=== PATIENT | male | born 1945 | race Caucasian/White ===

== ENCOUNTER → 2018-01-29 07:29 | Outpatient (CLI) | payer MEDICARE, OTHER, SELFPAY ==
[2018-01-29 09:39] LABS: Hemoglobin A1C% w Est Avg Glu 6.3 % (4.0-6.0)
[2018-01-29 09:51] LABS: Alanine Aminotransferase 34 IU/L (21-72); Albumin 4.3 g/dL (3.5-5.0); Albumin Globulin Ratio 1.4 (1.0-2.8); Alkaline Phosphatase 44 U/L (38-126); Aspartate Aminotransferase 23 IU/L (17-59); BUN Creatinine Ratio 26.7 (6-22); Bilirubin Total 0.9 mg/dL (0.2-1.3); Blood Urea Nitrogen 16 mg/dL (9-20); Calcium 9.2 mg/dL (8.4-10.2); Carbon Dioxide 28 mmol/L (22-32); Chloride 100 mmol/L (98-107); Cholesterol 146 mg/dL (140-199); Estimated Glomerular Filt Rate > 60.0 mL/min (>60); Glucose 112 mg/dL (80-110); HDL Cholesterol 41 mg/dL (40-60); HEMOLYSIS < 15 (0-50); LDL Cholesterol Calculated 83 mg/dL (<100); Potassium 4.1 mmol/L (3.4-5.1); Sodium 141 mmol/L (137-145); Total Protein 7.3 g/dL (6.3-8.2); Triglycerides 112 mg/dL (35-150)
[2018-01-29 10:03] LABS: Creatinine Urine Random 55.8 mg/dL
[2018-01-29 10:22] LABS: Microalbumi Creatinin Ratio Ur 10.7 ug/mg CR (<30); Microalbumin Urine Random < 0.6 mg/dL (0-1.6)
== END ==
PROVIDERS: Family Provider Physician Assistant; PCP Physician Assistant; Visit Provider Physician Assistant
DX: E78.5 Hyperlipidemia, unspecified (principal); I10 Essential (primary) hypertension; E11.9 Type 2 diabetes mellitus without complications
CPT/HCPCS: 36415; 80053; 80061; 82043; 82570; 83036

== ENCOUNTER → 2018-03-01 10:30 | Outpatient (CLI) | payer MEDICARE, OTHER, SELFPAY ==
[2018-03-01 11:47] LABS: Prostate Specific Antigen Scrn 0.905 ng/mL (0.1-4.0)
== END ==
PROVIDERS: Family Provider Physician Assistant; PCP Physician Assistant; Visit Provider Physician Assistant
DX: Z12.5 Encounter for screening for malignant neoplasm of prostate (principal)
CPT/HCPCS: 36415; G0103

== ENCOUNTER → 2018-09-22 07:26 | Outpatient (CLI) | payer MEDICARE, OTHER, SELFPAY ==
[2018-09-22 08:52] LABS: BUN Creatinine Ratio 21.4 (6-22); Blood Urea Nitrogen 15 mg/dL (9-20); Calcium 9.3 mg/dL (8.4-10.2); Carbon Dioxide 30 mmol/L (22-32); Chloride 101 mmol/L (98-107); Estimated Glomerular Filt Rate > 60.0 mL/min (>60); Glucose 114 mg/dL (80-110); HEMOLYSIS < 15 (0-50); Potassium 4.4 mmol/L (3.4-5.1); Sodium 140 mmol/L (137-145)
== END ==
PROVIDERS: PCP Physician Assistant; Visit Provider Physician Assistant
DX: E11.9 Type 2 diabetes mellitus without complications (principal); E78.5 Hyperlipidemia, unspecified; I10 Essential (primary) hypertension
CPT/HCPCS: 36415; 80048

== ENCOUNTER → 2019-02-24 07:17 | Outpatient (CLI) | payer MEDICARE, OTHER, SELFPAY ==
[2019-02-24 08:37] LABS: Creatinine Urine Random 41.4 mg/dL
[2019-02-24 08:43] LABS: Microalbumi Creatinin Ratio Ur 14.4 ug/mg CR (<30); Microalbumin Urine Random < 0.6 mg/dL (0-1.6)
[2019-02-24 08:46] LABS: Hemoglobin A1C% w Est Avg Glu 5.8 % (4.0-6.0)
[2019-02-24 09:04] LABS: Alanine Aminotransferase 19 IU/L (21-72); Albumin 4.3 g/dL (3.5-5.0); Albumin Globulin Ratio 1.5 (1.0-2.8); Alkaline Phosphatase 52 U/L (38-126); Aspartate Aminotransferase 21 IU/L (17-59); Bilirubin Total 1.1 mg/dL (0.2-1.3); Blood Urea Nitrogen 15 mg/dL (9-20); Calcium 9.5 mg/dL (8.4-10.2); Carbon Dioxide 30 mmol/L (22-32); Chloride 102 mmol/L (98-107); Cholesterol 145 mg/dL (140-199); Estimated Glomerular Filt Rate > 60.0 mL/min (>60); Globulin 2.8 g/dL (1.7-4.1); Glucose 100 mg/dL (80-110); HDL Cholesterol 42 mg/dL (40-60); HEMOLYSIS < 15 (0-50); LDL Cholesterol Calculated 85 mg/dL (<100); Potassium 4.4 mmol/L (3.4-5.1); Sodium 141 mmol/L (137-145); Total Protein 7.1 g/dL (6.3-8.2); Triglycerides 91 mg/dL (35-150)
[2019-02-24 09:34] LABS: Carcinoembryonic Antigen 0.4 ng/mL (0.1-3.0)
== END ==
PROVIDERS: PCP Physician Assistant; Visit Provider Physician Assistant
DX: E11.9 Type 2 diabetes mellitus without complications (principal); E78.5 Hyperlipidemia, unspecified; I10 Essential (primary) hypertension; Z85.048 Personal history of other malignant neoplasm of rectum, rectosigmoid junction, and anus
CPT/HCPCS: 36415; 80053; 80061; 82043; 82378; 82570; 83036

== ENCOUNTER → 2020-02-28 08:06 | Outpatient (CLI) | payer OTHER, SELFPAY ==
[2020-02-28 09:06] LABS: Add Manual Diff / Slide Review NO; Basophils Absolute Auto 0 /uL (0-100); Basophils Percent Auto 0.5 % (0-2); Eosinophils Absolute Auto 100 /uL (0-450); Eosinophils Percent Auto 1.3 % (2-4); Hematocrit 42.9 % (41-53); Hemoglobin 14.6 g/dL (13.5-17.5); Lymphocytes Absolute Auto 1100 /uL (1100-4500); Lymphocytes Percent Auto 23.3 % (25-40); Mean Corpuscular HGB Conc 34.1 % (30-36); Mean Corpuscular Hemoglobin 32.5 PG (26-34); Mean Corpuscular Volume 95.2 fL (80-100); Monocytes Absolute Auto 500 /uL (0-900); Monocytes Percent Auto 9.7 % (3-14); Neutrophils Absolute Auto 3200 /uL (1500-7000); Neutrophils Percent Auto 65.2 % (50-75); Platelet Count 247 X10^3/uL (150-400); Red Blood Cell Count 4.51 X10^6/uL (4.5-5.9); Red Cell Distribution Width 14.2 % (11.6-14.8); White Blood Cell Count 4.8 X10^3/uL (4.5-11.0)
[2020-02-28 09:12] LABS: Hemoglobin A1C% w Est Avg Glu 6.4 % (4.0-6.0)
[2020-02-28 09:27] LABS: Alanine Aminotransferase 17 IU/L (<50); Albumin 4.6 g/dL (3.5-5.0); Albumin Globulin Ratio 1.8 (1.0-2.8); Alkaline Phosphatase 50 U/L (38-126); Aspartate Aminotransferase 23 IU/L (17-59); BUN Creatinine Ratio 30.6 (6-22); Bilirubin Total 1.6 mg/dL (0.2-1.3); Blood Urea Nitrogen 19 mg/dL (9-20); Calcium 10.1 mg/dL (8.4-10.2); Carbon Dioxide 30 mmol/L (22-32); Chloride 99 mmol/L (98-107); Cholesterol 150 mg/dL (140-199); Estimated Glomerular Filt Rate > 60.0 mL/min (>60); Globulin 2.6 g/dL (1.7-4.1); Glucose 110 mg/dL (80-110); HDL Cholesterol 46 mg/dL (40-60); HEMOLYSIS < 15 (0-50); LDL Cholesterol Calculated 86 mg/dL (<100); Potassium 4.4 mmol/L (3.4-5.1); Sodium 137 mmol/L (137-145); Total Protein 7.2 g/dL (6.3-8.2); Triglycerides 91 mg/dL (35-150)
[2020-02-28 09:55] LABS: Thyroid Stimulating Hormone 2.89 uIU/mL (0.47-4.68)
[2020-02-28 09:59] LABS: Prostate Specific Antigen Scrn 0.699 ng/mL (0.1-4.0)
== END ==
PROVIDERS: PCP Family Medicine; Referring Provider Family Medicine; Visit Provider Family Medicine
DX: C20 Malignant neoplasm of rectum (principal); E11.9 Type 2 diabetes mellitus without complications; E78.5 Hyperlipidemia, unspecified; I10 Essential (primary) hypertension; Z13.29 Encounter for screening for other suspected endocrine disorder; C78.5 Secondary malignant neoplasm of large intestine and rectum; Z12.5 Encounter for screening for malignant neoplasm of prostate
CPT/HCPCS: 36415; 80053; 80061; 83036; 84443; 85025; G0103

== ENCOUNTER → 2020-07-05 07:45 | Outpatient (CLI) | payer OTHER, SELFPAY ==
[2020-07-05 08:42] LABS: Hemoglobin A1C% w Est Avg Glu 6.3 % (4.0-6.0)
[2020-07-05 08:49] LABS: Alanine Aminotransferase 16 IU/L (<50); Albumin 3.9 g/dL (3.5-5.0); Albumin Globulin Ratio 1.6 (1.0-2.8); Alkaline Phosphatase 46 U/L (38-126); Aspartate Aminotransferase 21 IU/L (17-59); BUN Creatinine Ratio 23.3 (6-22); Bilirubin Total 1.4 mg/dL (0.2-1.3); Blood Urea Nitrogen 17 mg/dL (9-20); Calcium 9.3 mg/dL (8.4-10.2); Carbon Dioxide 31 mmol/L (22-32); Chloride 101 mmol/L (98-107); Cholesterol 123 mg/dL (140-199); Estimated Glomerular Filt Rate > 60.0 mL/min (>60); Globulin 2.5 g/dL (1.7-4.1); Glucose 99 mg/dL (80-110); HDL Cholesterol 38 mg/dL (40-60); HEMOLYSIS < 15 (0-50); LDL Cholesterol Calculated 71 mg/dL (<100); Potassium 4.3 mmol/L (3.4-5.1); Sodium 137 mmol/L (137-145); Total Protein 6.4 g/dL (6.3-8.2); Triglycerides 72 mg/dL (35-150)
[2020-07-05 09:01] LABS: Creatinine Urine Random 60.6 mg/dL
[2020-07-05 09:11] LABS: Microalbumin Urine Random < 0.6 mg/dL (0-1.6)
== END ==
PROVIDERS: PCP Family Medicine; Referring Provider Family Medicine; Visit Provider Family Medicine
DX: E11.9 Type 2 diabetes mellitus without complications (principal); E78.5 Hyperlipidemia, unspecified; I10 Essential (primary) hypertension
CPT/HCPCS: 36415; 80053; 80061; 82043; 82570; 83036

== ENCOUNTER → 2020-09-07 | Outpatient (CLI) | payer OTHER, SELFPAY ==
--- NOTE | 2020-09-07 07:51 | DI.ECHO.S_ITS ---
[place]---------+ [facility] +---------+ : : [address] : : : : [id number] : : : : Phone: [phone]+ Echocardiogram Report + + :Name: TASHIA BUSH Study Date: 09/07/2020 Height: 67 in : :[facility] Weight: 132 lb : : Gender: Male BSA: 1.7 m2 : :: 1945 Age: 75 yrs BP: 142/60 mmHg: :Reason For Study: BRADYCARDIA, LOW BP : : Performed By: Kenan Velásquez : :Referring: Rylan ARANA : + + Interpretation Summary The ejection fraction is estimated to be 60-65%. The aortic valve is slightly calcified. There is mild aortic regurgitation. There is trace tricuspid regurgitation. The right ventricular systolic pressure is estimated to be at least 20 mmHg based on an estimated right atrial pressure of 3 mm Hg. The ascending aorta is mildly enlarged. Procedure: A two-dimensional transthoracic echocardiogram with color flow and Doppler was performed. The study quality was technically good. There is no prior echocardiogram noted for this patient. The patient was in normal sinus rhythm during the exam. Left Ventricle: The left ventricle is normal in size. There is normal left ventricular wall thickness. The ejection fraction is estimated to be 60-65%. There are no focal wall motion abnormalities. Right Ventricle: The right ventricle is normal in size and function. Atria: The left atrium is moderately dilated. Right atrial size is normal. There is no Doppler evidence for an atrial septal defect. Mitral Valve: The mitral valve is normal in structure and function. There is trace mitral regurgitation. Aortic Valve: The aortic valve is trileaflet. The aortic valve is slightly calcified. The aortic valve opens well. There is no hemodynamically significant valvular aortic stenosis. There is mild aortic regurgitation. Tricuspid Valve: The tricuspid valve is normal in structure and function. There is trace tricuspid regurgitation. The right ventricular systolic pressure is estimated to be at least 20 mmHg based on an estimated right atrial pressure of 3 mm Hg. Pulmonic Valve: The pulmonic valve is normal in structure and function. There is no pulmonic valvular regurgitation. Great Vessels: The aortic root is normal size. The ascending aorta is mildly enlarged. The pulmonary artery is normal size. The IVC is of normal diameter and collapses greater than 50% with a sniff. This suggests a low right atrial pressure of 3 mm Hg. Pericardium/ Pleura There is no pericardial effusion. There is no pleural effusion. MMode/2D Measurements & Calculations LVIDd: 5.0 cm LVOT diam: 2.2 cm LVIDs: 3.1 cm Ao root diam: 3.4 cm FS: 38.5 % asc Aorta Diam: 3.8 cm EPSS: 0.44 cm Ao Arch Diam (Prox Trans): 2.5 cm IVSd: 0.76 cm LVPWd: 0.88 cm LV glass. diameter/BSA (cm/m^2): 3.0 LV sys. diameter/BSA (cm/m^2): 1.8 LA dimension: 3.7 cm RA long axis: 4.9 cm LA A2 area: 21.6 cm2 RA area: 14.3 cm2 LA A4 area: 18.5 cm2 RA vol: 35.5 ml LA length (vol): 4.9 cm RA : 20.9 ml/m2 LA vol: 69.1 ml IVC diam: 1.6 cm LA vol index: 40.8 ml/m2 Doppler Measurements & Calculations Ao V2 max: 164.9 cm/sec LVOT Max Janes: 113.8 cm/sec Ao V2 mean: 116.9 cm/sec LV V1 max P.2 mmHg Ao max P.9 mmHg LV V1 VTI: 23.5 cm Ao mean P.9 mmHg RAMONA(I,D): 2.8 cm2 Ao V2 VTI: 32.9 cm RAMONA(V,D): 2.7 cm2 sev ratio: 0.71 RAMONA indexed to BSA (cm^2/m^2): 1.6 AI P1/2t: 576.9 msec AI dec slope: 206.5 cm/sec2 MV E max janes: 69.6 cm/sec TR max janes: 205.4 cm/sec MV A max janes: 82.1 cm/sec TR max P.9 mmHg MV E/A: 0.85 PA V2 max: 82.8 cm/sec Med Peak E' Janes: 6.9 cm/sec PA V2 mean: 63.4 cm/sec E/E' med: 10.0 PA mean P.7 mmHg Lat Peak E' Janes: 8.2 cm/sec PA pr(Accel): 20.8 mmHg E/E' lat: 8.5 E/e' average: 9.2 MV dec time: 0.20 sec SV(LVOT): 90.6 ml Reading Physician:01:43 PM
== END ==
PROVIDERS: PCP Family Medicine; Referring Provider Family Medicine; Visit Provider Family Medicine
DX: I35.1 Nonrheumatic aortic (valve) insufficiency (principal); I77.89 Other specified disorders of arteries and arterioles; R00.1 Bradycardia, unspecified; I10 Essential (primary) hypertension
CPT/HCPCS: 93306

== ENCOUNTER → 2020-09-28 07:26 | Outpatient (CLI) | payer OTHER, SELFPAY ==
[2020-09-28 09:36] LABS: Alanine Aminotransferase 17 IU/L (<50); Albumin 4.5 g/dL (3.5-5.0); Albumin Globulin Ratio 1.6 (1.0-2.8); Alkaline Phosphatase 45 U/L (38-126); Aspartate Aminotransferase 24 IU/L (17-59); BUN Creatinine Ratio 31.5 (6-22); Bilirubin Total 1.6 mg/dL (0.2-1.3); Blood Urea Nitrogen 23 mg/dL (9-20); Calcium 9.8 mg/dL (8.4-10.2); Carbon Dioxide 34 mmol/L (22-32); Chloride 98 mmol/L (98-107); Estimated Glomerular Filt Rate > 60.0 mL/min (>60); Globulin 2.8 g/dL (1.7-4.1); Glucose 118 mg/dL (80-110); HEMOLYSIS < 15 (0-50); Potassium 4.9 mmol/L (3.4-5.1); Sodium 136 mmol/L (137-145); Total Protein 7.3 g/dL (6.3-8.2)
[2020-09-28 09:41] LABS: Creatinine Urine Random 52.4 mg/dL
[2020-09-28 09:55] LABS: Microalbumin Urine Random < 0.6 mg/dL (0-1.6)
== END ==
PROVIDERS: PCP Family Medicine; Referring Provider Family Medicine; Visit Provider Family Medicine
DX: E78.5 Hyperlipidemia, unspecified (principal); I10 Essential (primary) hypertension
CPT/HCPCS: 36415; 80053; 82043; 82570

== ENCOUNTER → 2020-10-04 10:53 | Outpatient (CLI) | payer OTHER, SELFPAY ==
--- NOTE | 2020-10-04 13:57 | DIET.PN ---
Diabetes Intake: Initial Assessment Assess: Mr. Burns is 75 yom referred for long standing hx of type 2 diabetes. He has maintained good control since diagnosis below 7.0. He has been on metformin 500mg BID since diagnosis of pre-diabetes in 2000. He and his walk on their treadmills 30 min 4-5d/wk and he spend 3-4 hrs working on his property daily. Labs: Per pt report: A1c: 6.4 ->6.3 Meds: metformin 500mg BID Diet: per 24 hr recall: B: Slovenian muffin w/ butter L: ? sandwich w/ vegetables, cottage cheese and pineapple D: pro, veg, starch Sn: popcorn, fruit Wt: 136lb Ht: 66in BMI: 21.9 BP: 118/70 DX: Altered nutrition related laboratory values related to impaired glucose metabolism, lack of previous exposure to nutrition information as evidenced by pt report, diagnosis of diabetes, previous diet high in refined carbohydrates. Intervention: 1. Completed intake assessment. Discussed barriers to care. 2. Discussed pathophysiology of diabetes. Reviewed A1c and its correlation to blood glucose numbers. Discussed recommended BG ranges. 3. Discussed importance of self-monitoring, how often, and when to check. 4. Reviewed hyper/hypoglycemia and treatment. 5. Reviewed safe disposal of equipment (strip/lancets/insulin needles). 6. Created SMART goals for pt self-care and success. 7. Discussed program curriculum outline and class needs based on individual goals. SMART Goals: 1. Pt main goal to get off of metformin completely through lifestyle habits including carb counting, portion control, and continued glucose monitoring. Monitor/Evaluate: Pt will attend full DSME program. Basic Nutrition class scheduled for Oct 09.
== END ==
PROVIDERS: PCP Family Medicine; Referring Provider Family Medicine; Visit Provider Family Medicine
DX: E11.9 Type 2 diabetes mellitus without complications (principal); Z79.84 Long term (current) use of oral hypoglycemic drugs; Z71.3 Dietary counseling and surveillance
CPT/HCPCS: G0108

== ENCOUNTER → 2020-10-16 09:56 | Outpatient (CLI) | payer OTHER, SELFPAY ==
--- NOTE | 2020-10-16 11:58 | DIET.PN ---
Diabetes: Healthy Eating 2 Intervention: Fats effects on glucose, weight, heart disease, cholesterol Sat Vs Unsat Protein- animal and plant based options Low, med, high fat meats Sugar substitutes Sodium Health claims Grocery shopping guidelines Eating away from home Alcohol Sick day guidelines Ketone Testing
== END ==
PROVIDERS: PCP Family Medicine; Referring Provider Family Medicine; Visit Provider Family Medicine
DX: E11.9 Type 2 diabetes mellitus without complications (principal); Z71.3 Dietary counseling and surveillance
CPT/HCPCS: G0109

== ENCOUNTER → 2020-10-23 09:46 | Outpatient (CLI) | payer OTHER, SELFPAY ==
--- NOTE | 2020-10-23 15:48 | DIET.PN ---
Diabetes Physiology and Medications: Intervention 1. Diabetes physiology 2. Detecting and treatment of acute and chronic complications 3. Diagnosis of and difference in types of diabetes 4. Self-monitoring and pattern management a. Demonstrate glucometer and control testing b. Explain BG results and action to take when out of range. 5. Foot , eye, dental care 6. Medications a. Oral medication classification b. Injectable c. Insulin i. Injection protocol ii. Other delivery methods
== END ==
PROVIDERS: PCP Family Medicine; Referring Provider Family Medicine; Visit Provider Family Medicine
DX: E11.9 Type 2 diabetes mellitus without complications (principal); Z71.3 Dietary counseling and surveillance
CPT/HCPCS: G0109

== ENCOUNTER → 2020-10-30 09:48 | Outpatient (CLI) | payer OTHER, SELFPAY ==
--- NOTE | 2020-10-30 16:12 | DIET.PN ---
Diabetes Exercise/Lifestyle change: 1. Importance of exercise 2. FITT (frequency, intensity, time, type) 3. Strength training tips and guidelines 4. Glucose monitoring/ranges before and after a. Carbohydrate needs based on glucose ranges and duration/intensity of exercise b. Rule of 15 5. Proper foot attire 6. Developing strategies for behavior change 7. SMART Goal Setting 8. Home exercise routine demonstration (as a class)
== END ==
PROVIDERS: PCP Family Medicine; Referring Provider Family Medicine; Visit Provider Family Medicine
DX: E11.9 Type 2 diabetes mellitus without complications (principal); Z71.3 Dietary counseling and surveillance
CPT/HCPCS: G0109

== ENCOUNTER → 2020-11-08 09:52 | Outpatient (CLI) | payer OTHER, SELFPAY ==
--- NOTE | 2020-11-08 10:32 | DIET.PN ---
DIABETES Nutrition Initial Assessment:? ASSESS:?? Mr. Burns is a 75 yom??referred for type 2 diabetes seen as part of DSME program. He has maintained excellent glucose control through improved dietary habits, meal prep, planned snacks between meals, and continued exercise. He has been keep a food and glucose log. ??? LABS: Per pt report:? A1c: 6.3 ? MEDS:?? metformin 500mg Eating Out: rarely Changes in Appetite: none Nutrition Supplements: multivit ? Weight: 137lb Height: 66in BMI: ? 22 ? Exercise:? walk 30 min/day; property work NUTRITION DX 1. Altered Nutrition related labs related to impaired glucose metabolism, lack of previous exposure to accurate nutrition information as evidenced by pt report, dx of diabetes, previous diet high in refined carbohydrates.? INTERVENTION(s): 1. Reviewed pathophysiology of diabetes and impact of nutrition/diet on blood sugar control.? Discussed fed versus non-fed state.?? 2. Discussed the effect of carbohydrates/protein/fat on blood sugar control.? Stressed importance of consistent carbohydrate intake at each meal and provided instructions for recommended servings/portions of carbohydrates/protein per meal. Provided pt with educational material. 3. Reviewed carbohydrate counting and measuring carbohydrate content via serving sizes and reading nutrition labels.? Provided handouts.?? 4. Discussed the difference between simple versus complex carbohydrates and the effect of fiber on blood sugar control.? Discussed various methods to increase fiber content in diet. 5. Stressed importance of meal timing and not going >4-5 hours between meals. Encouraged adding protein to evening snack to support glucose control overnight. Patient agreeable. 6. Discussed healthy weight loss goals of 1-2lbs per week through diet and exercise.? Pt agreeable to walking at least 30 minutes daily. 7. Recommend monitoring fasting and alternating 2 hr PP mealtime glucose. MONITOR/EVALUATE: Anticipate good compliance.? Nutrition follow-up scheduled for 1 month.
[2020-11-08 10:33] VITALS: BMI 22.0
== END ==
PROVIDERS: PCP Family Medicine; Referring Provider Family Medicine; Visit Provider Family Medicine
DX: E11.9 Type 2 diabetes mellitus without complications (principal)
CPT/HCPCS: G0109

== ENCOUNTER → 2020-11-16 17:32 | Outpatient (CLI) | payer OTHER, SELFPAY ==
--- NOTE | 2020-11-16 17:33 | DI.RAD.S_ITS ---
PROCEDURE: XR WRIST LT MIN 3V INDICATIONS: left wrist pain TECHNIQUE: 4 views of the wrist were acquired. COMPARISON: None. FINDINGS: Bones: No fractures or dislocations. Severe 1st CMC joint osteoarthritic changes are seen. No suspicious bony lesions. Scaphoid view: Scaphoid is grossly intact. Soft tissues: No suspicious soft tissue calcifications. IMPRESSION: Severe 1st CMC joint osteoarthritis. No acute left wrist fracture or dislocation. Dictated by: Nadeem Spaulding M.D. on 11/16/2020 at 17:47 Approved by: Nadeem Spaulding M.D. on 11/16/2020 at 17:51
== END ==
PROVIDERS: PCP Family Medicine; Referring Provider Family Medicine; Visit Provider Family Medicine
DX: M19.032 Primary osteoarthritis, left wrist (principal); M25.532 Pain in left wrist
CPT/HCPCS: 73110

== ENCOUNTER 2021-01-01 03:16 | Emergency (ER) | payer OTHER, SELFPAY ==
--- NOTE | 2021-01-01 03:18 | ED.NECK ---
HPI - Neck Pain/Injury General Chief Complaint: Neck Pain/Injury Stated Complaint: hurt neck thursday, pain in neck/head/arm left Time Seen by Provider: 01/01/21 03:18 Source: patient Mode of arrival: Ambulatory Limitations: no limitations History of Present Illness HPI Narrative: 75-year-old male former smoker with history of hypertension, diabetes, hyperlipidemia, hearing impairment, bradycardia presents with a chief complaint of neck, head and arm pain after an injury a few days ago. His injury is more and overuse type injury as he was working out in the [employer] and likely troubles stem from this. He denies any fall or direct trauma. He has developed increasing pain in the left side of his neck and posterior shoulder that also radiates down his left arm. It seems to be worse when he turns his head and moves and improves with rest. He denies any numbness, tingling or weakness. He denies any chest pain or shortness of breath. He has started to develop some left-sided occipital headache as well and denies any blurred vision, trouble speech. His had pain is worse when his neck pain is flaring up and he denies any exertional component nor associations with bright lights, loud noises. He has had no fever or chills and does not take blood thinners Related Data Home Medications Medication Instructions Recorded Confirmed ASPIRIN (#ASPIRIN) 325 mg PO QDAY #0 12/19/10 11/16/20 Vitamin E 400 IU See Rx Instructions .ROUTE .COMPLEX 03/08/19 11/16/20 ascorbate calcium (vitamin C) 500 500 mg PO BID 03/08/19 11/16/20 mg tablet omega-3 fatty acids 1,000 mg 1,000 mg PO BID cap 03/08/19 11/16/20 capsule Previous Rx's Medication Instructions Recorded sildenafil (pulm.hypertension) 20 100 mg .ROUTE .COMPLEX #40 tab 06/06/19 mg tablet colesevelam 3.75 gram oral powder 3,750 mg PO DAILY #30 ea 10/31/20 packet metformin 1,000 mg 24 hr 1,000 mg PO QPM #90 tab 10/31/20 tablet,extended release pravastatin 20 mg tablet 20 mg PO BEDTIME #90 tab 10/31/20 Glucometer #1 ea NS 12/03/20 Lancets #100 ea NS 12/03/20 Test Strips #1 ea 12/03/20 diclofenac sodium 1 % topical gel 2 g TOPICAL QID #100 g 12/10/20 lisinopril 10 mg tablet 10 mg PO BID #180 tab 12/24/20 cyclobenzaprine 10 mg PO TID PRN #14 tab 01/01/21 ketorolac 10 mg PO Q6H PRN #14 tab 01/01/21 prednisone 20 mg PO DAILY #5 tab 01/01/21 Allergies Allergy/AdvReac Type Severity Reaction Status Date / Time venom-honey bee Allergy Intermediate SWELLING, Verified 11/16/20 16:58 [bee venom (honey bee)] ITCHING AND REDNESS niacin AdvReac Severe GAVE ME Verified 11/16/20 16:58 BLISTERS IN THE BACK OF MY EYES CHLORINE AdvReac Mild EYE Uncoded 08/08/20 08:11 IRRITATION AND SENSITIVITY TO LIGHT FOR 1 DAY Review of Systems Constitutional Constitutional: Denies chills, Denies fatigue, Denies fever(s), Denies frequent falls, Reports headache(s), Denies lethargy and Denies weakness Eyes Eyes: Denies change in vision, Denies eye discharge, Denies irritation and Denies loss of vision ENT Ears, Nose, Mouth, and Throat: Denies change in voice, Denies dizziness, Reports headache(s), Reports neck pain, Denies sore throat and Denies throat swelling Cardiovascular Cardiovascular: Denies chest pain, Denies irregular heart rhythm, Denies lightheadedness, Denies palpitations, Denies dyspnea, Denies dyspnea on exertion and Denies orthopnea Respiratory Respiratory: Denies cough, Denies dyspnea, Denies dyspnea on exertion and Denies wheezing Gastrointestinal Gastrointestinal: Denies abdominal pain, Denies change in bowel habits, Denies diarrhea, Denies nausea and Denies vomiting Musculoskeletal Musculoskeletal: Reports neck pain, Denies numbness and Reports radiating pain into limb Integumentary/Breasts Skin/Breast: Denies pruritus, Denies erythema, Denies rash and Denies wounds Neurologic Neurologic: Denies behavioral changes, Denies confusion, Denies dizziness, Denies frequent falls, Reports headache(s), Denies loss of vision, Denies numbness and Denies weakness Psychiatric Psychiatric: Denies anxiety, Denies behavioral changes, Denies confusion, Denies depression, Denies homicidal ideation and Denies suicidal ideation Endocrine Endocrine: Denies fatigue, Denies flushing and Denies palpitations Hematologic/Lymphatic Hematologic/Lymphatic: Denies easy bruising Allergic/Immunologic Allergic/Immunologic: Denies urticaria, Denies throat swelling and Denies wheezing Patient History Medical History Bradycardia Cataracts, bilateral (Unknown) Diabetes (Unknown) Hearing impairment History of rectal cancer (Unknown) Hyperlipemia (Unknown) Hypertension (Unknown) Left forearm pain Well adult exam Surgical History History of rectal surgery (2003) History of tonsillectomy Status post colectomy Family History Father DM w/o complication type II Mother Polymyositis Heart disease Other and unspecified hyperlipidemia Sister Dementia Social History Smoking Status: Former smoker Tobacco: How many years used: 6 quit status: has quit before second hand exposure: No alcohol intake: former (I quit in 1983) substance use type: does not use eating out: rarely or never Type(s) of exercise: walking and regular exercise Smoking Status: Former smoker (I quit in 1970) Exam Narrative Exam Narrative: GENERAL: [75] year old patient appears stated age. Well-nourished, well-developed patient, in mild distress. GCS 15 HEAD: Atraumatic. Normocephalic. EYES: Pupils equal round and reactive. Extraocular motions intact. No scleral icterus. No injection or drainage. ENT: Nose without bleeding, purulent drainage. Throat without erythema, tonsillar hypertrophy or exudate. Airway patent. NECK: Trachea midline. Tender to palpation in the left side cervical paraspinal musculature and had insertional point on the nuchal ridge. No change in symptoms with axial loading of the cervical spine. No measurable upper extremity weakness, numbness or tingling. Distal neurovascular status intact. CARDIOVASCULAR: Regular rate and rhythm without murmurs, gallops, or rubs. RESPIRATORY: Clear to auscultation. Breath sounds equal bilaterally. No wheezes, rales, or rhonchi. GASTROINTESTINAL: Abdomen soft, non-tender, nondistended. EXTREMITIES: No edema or joint tenderness. BACK: Nontender without deformity or crepitance. No flank tenderness. NEURO: AOx3. SKIN: No rash or erythema of visible areas Initial Vital Signs Initial Vital Signs: Vital Signs Temperature 97.8 F 01/01/21 03:33 Pulse Rate 67 01/01/21 03:33 Respiratory Rate 16 01/01/21 03:33 Blood Pressure 221/102 H 01/01/21 03:33 Pulse Oximetry 98 01/01/21 03:33 Course Orders Ordered: Discontinued Medications Hydrocodone Bitart/Acetaminophen (Hydrocodone/Acet 5/325 Prepack) 1 bottle MISC SEEINSTR ONE Stop: 01/01/21 03:36 Cyclobenzaprine HCl (Cyclobenzaprine 10 Mg Prepack) 1 bottle MISC SEEINSTR ONE Stop: 01/01/21 03:36 Prednisone (Prednisone 20 Mg Tablet) 40 mg PO NOW ONE Stop: 01/01/21 03:36 Vital Signs Vital signs: Vital Signs - 8 hr 01/01/21 03:33 Temperature 97.8 F Pulse Rate 67 Respiratory Rate 16 Blood Pressure 221/102 H Pulse Oximetry 98 MDM - Neck Pain/Injury MDM Narrative Medical decision making narrative: Very well-appearing patient without any red flag symptoms of headache or cervical spinal issues. No change with axial loading to suggest disc problem. No measurable numbness, tingling or weakness. Symptoms have gradually worsened since overuse and involve paraspinal musculature with radiation to his left arm. Extensive return precautions given to he and his who both demonstrate their ability to understand the diagnosis, plan and return precautions as evidence by their ability to verbalize them back. Discharge Plan Departure Patient Disposition: Home Clinical Impression: Cervical radiculopathy Strain of neck muscle Qualifiers: Encounter type: initial encounter Qualified Code(s): S16.1XXA - Strain of muscle, fascia and tendon at neck level, initial encounter Instructions: DI for Cervical Radiculopathy Activity Restrictions/Additional Instructions: *You have been diagnosed with [cervical radiculopathy, most likely due to cervical paraspinal irritation, inflammation and spasm] *What to do: *Please continue to take your regular medications as directed. [x ] New medication prescriptions sent to your pharmacy: [ [facility]] [ ] New medication written as a paper prescription [ ] No new medications given *Please follow up with your primary care provider in 2-3 days, call for an appointment. Let them know you were seen in the Emergency Department and that we ask that you be seen in follow up. We will electronically transmit a record of today's note if your PCP is in our system *One of your new medications (Prednisone) is likely to cause elevations in your blood sugar, please follow closely *If you do not have a primary care provider please contact the [facility] Resource line at [phone]. They will ask some questions about your medical history and help get you set up with a doctor in the community. *Return to Emergency Department if you should have any new, worsening or concerning symptoms, such as [fever greater than 101 F, shaking chills, worsening pain, persistent vomiting, weakness of your arm, confusion, altered mental status or other bothersome symptoms] Prescriptions: New cyclobenzaprine 10 mg tablet 10 mg PO TID PRN (Reason: muscle spasm) Qty: 14 RF: 0 ketorolac 10 mg tablet 10 mg PO Q6H PRN (Reason: pain) Qty: 14 RF: 0 prednisone 20 mg tablet 20 mg PO DAILY Qty: 5 RF: 0 No Action ASPIRIN (#ASPIRIN) 325 mg PO QDAY Qty: 0 RF: 0 sildenafil (pulm.hypertension) 20 mg tablet 100 mg .ROUTE .COMPLEX Qty: 40 RF: 3 (DME) Lancets See Rx Instructions .Route .MEDSUPPLY Qty: 100 RF: 3 (DME) Test Strips See Rx Instructions .Route .MEDSUPPLY Qty: 1 RF: 3 (DME) Glucometer See Rx Instructions .Route .MEDSUPPLY Qty: 1 RF: 0 lisinopril 10 mg tablet 10 mg PO BID Qty: 180 RF: 3 ascorbate calcium (vitamin C) 500 mg tablet 500 mg PO BID RF: 0 Vitamin E 400 IU See Rx Instructions .ROUTE .COMPLEX RF: 0 omega-3 fatty acids [Fish Oil Concentrate] 1,000 mg capsule 1,000 mg PO BID RF: 0 diclofenac sodium [Voltaren] 1 % gel 2 g topical QID Qty: 100 RF: 1 metformin 1,000 mg tablet,ER bar.retention 24 hr 1,000 mg PO QPM Qty: 90 RF: 3 pravastatin 20 mg tablet 20 mg PO BEDTIME Qty: 90 RF: 3 colesevelam [WelChol] 3.75 gram powder in packet 3,750 mg PO DAILY Qty: 30 RF: 2 Referrals: Allen Michelle, [Primary Care Provider] -
[2021-01-01 03:33] VITALS: BP 221/102; PULSE 67; RESP 16; TEMP 36.6; O2SAT 98; BMI 20.7
[2021-01-01] MEDS: HYDROCODONE/ACET 5/325 PREPACK 1 BOTTLE MISC (03:41)
[2021-01-01] MEDS: CYCLOBENZAPRINE 10 MG PREPACK 1 BOTTLE MISC (03:41)
[2021-01-01] MEDS: predniSONE 20 MG TABLET 40 MG PO (03:41)
== END 2021-01-01 03:46 | disposition home or self-care (01) ==
PROVIDERS: Emergency Provider Emergency Medicine; Family Provider Family Medicine; PCP Family Medicine
DX: M54.12 Radiculopathy, cervical region (principal); S16.1XXA Strain of muscle, fascia and tendon at neck level, initial encounter; M25.512 Pain in left shoulder; X58.XXXA Exposure to other specified factors, initial encounter
CPT/HCPCS: 99283

== ENCOUNTER → 2021-01-23 12:41 | Outpatient (CLI) | payer OTHER, SELFPAY ==
[2021-01-23 14:08] LABS: Alanine Aminotransferase 16 IU/L (<50); Albumin 3.8 g/dL (3.5-5.0); Albumin Globulin Ratio 1.5 (1.0-2.8); Alkaline Phosphatase 51 U/L (38-126); Aspartate Aminotransferase 22 IU/L (17-59); BUN Creatinine Ratio 32.8 (6-22); Bilirubin Total 0.6 mg/dL (0.2-1.3); Blood Urea Nitrogen 21 mg/dL (9-20); Calcium 9.2 mg/dL (8.4-10.2); Carbon Dioxide 31 mmol/L (22-32); Chloride 100 mmol/L (98-107); Estimated Glomerular Filt Rate > 60.0 mL/min (>60); Globulin 2.6 g/dL (1.7-4.1); Glucose 223 mg/dL (80-110); HEMOLYSIS < 15 (0-50); Magnesium 2.1 mg/dL (1.6-2.3); Potassium 4.6 mmol/L (3.4-5.1); Sodium 137 mmol/L (137-145); Total Protein 6.4 g/dL (6.3-8.2)
[2021-01-23 14:36] LABS: Thyroid Stimulating Hormone 1.88 uIU/mL (0.47-4.68)
== END ==
PROVIDERS: Family Provider Family Medicine; PCP Family Medicine; Referring Provider Internal Medicine Cardiovascular Disease; Visit Provider Internal Medicine Cardiovascular Disease
DX: I10 Essential (primary) hypertension (principal); E78.5 Hyperlipidemia, unspecified
CPT/HCPCS: 36415; 80053; 83735; 84443

== ENCOUNTER 2021-02-04 09:45 | Outpatient (RCR) | payer OTHER, SELFPAY ==
--- NOTE | 2020-12-21 12:16 | PT.OPPOC ---
Physical, Occupational & Speech Therapy At [facility] Current Diagnoses Pain in left wrist (12/21/20) Muscle weakness (generalized) (12/21/20) Pain in left forearm (12/21/20) Visit Care Team Role Provider Type Allen Michelle DO Attending Provider Physician Family Provider Primary Care Provider Referring Provider Specialty: Family Practice Address: [address] [place] [address], [facility] Email: [email or web address] Plan Of Care PT-OP-T Assessment and Plan Start: 12/18/20 14:12 Freq: Status: Active Protocol: Document 12/21/20 09:53 LRN (Rec: 12/21/20 10:41 LRN [id number]) Physical Therapy Assessment Rehab Potential Rehabilitation Potential Good Evaluation Complexity Number of Personal Factors/Comorbidities 1-2 Number of Body Systems Impaired 4 or More Clinical Presentation at Evaluation Evolving Impairments Impairments Pain,ROM,Soft Tissue Mobility, Strength Goals Three Impairment Decreased L wrist strength ( 47# left, 71# right) Short Term Goal (STG) Improve ict managers strength to 57# ( 20% of right) STG Duration 01/18/21 Tail Board Man Goal (LTG) Improve L wrist strength with pt able to pull up socks without sharp pain. LTG Duration 02/19/21 Two Impairment Decreased L wrist ROM in deg's (Ext: 38 L, 54 R; UD 17 L, 28 R) Short Term Goal (STG) Improve L wrist AROM with pt will be able to move his hand in UD/RD (up/down) without sharp pain. STG Duration 01/18/21 Senior Living Goal (LTG) Improve L wrist mobility with the pt able to tuck in his T- shirt with mild L lateral wrist discomfort (eliminate sharp pain, rated 4/10). LTG Duration 02/19/21 One Impairment Pt lacks a self care HEP Tail Board Man Goal (LTG) Pt will be independent in a self care HEP. LTG Duration 02/19/21 Assessment Summary Assessment Pt is a 75 yo male who presents with a strain at the L lateral (ulnar side) wrist. Assessment of the small bones was deferred due to noted increased swelling at the wrist from ROM and strength assessment of the wrist and elbow. He has pain with MMT of the elbow. Testing of the ulnar bone with a tuning fork would indicate probably no fracture of the ulna. The pt is limited with L wrist ext and UD ROM and with strength of the elbow and wrist ( primarily UD and supination). Rn Hemo Dialysis strength is expected to improve as wrist and elbow strength improve although the pt is R handed; therefore decreased L ict managers strength may be more associated to his being R handed. The pt will benefit from skilled physical therapy to improve L wrist mobility and strength as well as elbow strength and improve functional use of the L wrist/ hand. Physical Therapy Plan Frequency and Duration Frequency of Treatment 2x/Week Plan of Care Start Date 12/21/20 Plan of Care End Date 02/19/21 Therapeutic Interventions Therapeutic Interventions Home Exercise Program,Joint Mobilizations,Manual Therapy, Patient/Caregiver Education, Self-Care/Home Management,Soft Tissue Mobilization,Taping, Therapeutic Exercises Modalities Cold Pack/Ice Massage,Hot Packs Next Visit Focus/Plan Next Note Type Treatment Note Next Visit Plan Initiate gentle wrist ROM (ext , supination and UD), and strengthening, and STM of wrist extensor; strengthening of elbow (flex/ext/sup/pron), f/b modalities to decreased pain (Paraffin dip, ice). Progression of HEP. Plan of Care Dates Plan of Care Start Date 12/21/20 Plan of Care End Date 02/19/21 Electronically Signed by: Eunice Anguiano, PT 12/25/20 [id number] Please Sign and Return: I have reviewed this Plan of Care and certify that the skilled therapy services above are required to meet the patient?s needs. Physician Signature Date Printed Name and Credentials Clinical Instructor Signature Printed Name and Credentials
--- NOTE | 2020-12-21 12:16 | PT.OIE ---
Current Diagnoses Pain in left wrist (12/21/20) Muscle weakness (generalized) (12/21/20) Pain in left forearm (12/21/20) Past Medical History (Last Reviewed 12/10/20 @ 15:01 by Allen Michelle DO) Bradycardia Cataracts, bilateral (Unknown) Diabetes (Unknown) Hearing impairment History of rectal cancer (Unknown) Hyperlipemia (Unknown) Hypertension (Unknown) Left forearm pain Well adult exam Past Surgical History (Last Reviewed 09/23/19 @ 10:05 by Allen Michelle DO) History of rectal surgery (2003) History of tonsillectomy Status post colectomy Visit Care Team Role Provider Type Allen Michelle DO Attending Provider Physician Family Provider Primary Care Provider Referring Provider Specialty: Family Practice Address: [address] [place] [address], [facility] Email: [email or web address] Physical Therapy Initial Evaluation PT-OP-A Visit Information Start: 12/18/20 14:12 Freq: Status: Active Protocol: Document 12/21/20 09:53 LRN (Rec: 12/21/20 10:41 LRN [id number]) Out-Patient Physical Therapy Visit Information Visit Information Visit Type Initial Evaluation Visit Start Time 09:53 Visit Stop Time 10:33 Total Visit Minutes 40 Visit Number 1 Evaluation Information Evaluation Date 12/21/20 Precautions Precautions 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 PT-OP-B Current Condition Start: 12/18/20 14:12 Freq: Status: Active Protocol: Document 12/21/20 09:53 LRN (Rec: 12/21/20 10:41 LRN [id number]) Current Condition History of Current Condition Onset Date 10/23/20 Current Complaints L forearm pain. History of Current Condition States he jammed a shovel into the ground and hit a rock, causing the shovel to stop and the hand kept going. He has been wearing a wrist splint. Wore a splint for 6 wks, then was seen for f/u and was told he needed to wear the splint outside but not in the house for 3 wks. He has been working outside daily. Pt reports pain at ulnar side of lateral wrist joint and pain is at distal ulnar and at the joint. His pain is not worse and he feels better after wearing the splint. Splint helps keep him from overusing. Prior Treatments and Tests No meds. Uses a salve of 1% hydrocortisone mostly right before bedtime for the pain. X-rays: No fractures. Treatment Goals Patient/Caregiver Goals Pt goal is for his L lateral wrist to not hurt with the sharp pain (rated 4/10) tucking in T-shirt, or up/down movement of wrist (UD/RD). States he is okay with the ache, rated 2/10. At rest no pain. Prior Functional Status Baseline Function- ADL's Independent Baseline Function- Mobility Independent Baseline Function- Recreation/Hobbies Gardens. Current Functional Impairments (Reported) Functional Limitations- ADL's L lateral wrist to not hurt with the sharp pain (rated 4/ 10) tucking in T-shirt, or up/ down movement of wrist (UD/RD) . Sharp pain with pulling up socks. Functional Limitations- Recreation/ Wears brace with outside Hobbies activities. Limited with cutting small twigs off bushes due to soreness. Personal Factors Other Personal Factors That May Effect Unknown low pulse (45-55) Therapy/Recovery condition and he is seeing a weave room supervisor, arthritis of bilateral thumbs. PT-OP-C Subjective Start: 12/18/20 14:12 Freq: Status: Active Protocol: Document 12/21/20 09:53 LRN (Rec: 12/21/20 10:41 LRN [id number]) OP-PT Subjective Patient Comments Patient Comments L thumb pain from arthritis Ice make it hurt more, heat is better. Patient Questionnaires Quick Dash- Upper Extremity Quick Dash UE Score 22.72 Quick Dash UE Impairment 20 to 39% Impaired (Score 20- 39) OP-PT Pain Assessment Pain Assessment Grid Paper Pain Assessment Grid Completed Yes Location L wrist Pain Location Details L lateral ulnar side of wrist Intensity 8 Scale Used Numeric (0 - 10) Description Aching,Dull,Sharp Frequency Intermittent Pain Aggravating Factors Activity Pain Alleviating Factors Medication PT-OP-F Manual Assessment Start: 12/18/20 14:12 Freq: Status: Active Protocol: Document 12/21/20 09:53 LRN (Rec: 12/21/20 10:41 LRN [id number]) Manual Assessments Soft Tissue Assessment Soft Tissue Mobility Assessment Slightly warm and tender at L ulna and distal end of ulna. Other Manual Assessments Other Manual Assessments L ulna tuning fork assessment - negative for pain. PT-OP-J Posture/Palpation/Skin Start: 12/18/20 14:12 Freq: Status: Active Protocol: Document 12/21/20 09:53 LRN (Rec: 12/21/20 10:41 LRN [id number]) Posture Evaluation Position Sitting Shoulder Posture Neutral Arm Posture (L) Neutral,(R) Neutral Comments Posture Comments Swelling at and above L distal end of ulna. PT-OP-K Range of Motion Start: 12/18/20 14:12 Freq: Status: Active Protocol: Document 12/21/20 09:53 LRN (Rec: 12/21/20 10:41 LRN [id number]) Elbow/Forearm Range of Motion Elbow/Forearm Right Active Elbow/Forearm ROM WFL Yes ROM Testing Position Sitting Pronation (degrees) 90 Supination (degrees) 80 Comments Elbow flexed Left Active Elbow/Forearm ROM WFL Yes ROM Testing Position Sitting Pronation (degrees) 90 Supination (degrees) 80 Comments AROM is WNL Mild pain at L lateral wrist with supination Wrist Goniometric Range of Motion Wrist Right Wrist ROM WFL Yes Flexion Active (degrees) 60 Extension Active (degrees) 54 Ulnar Deviation Active (degrees) 28 Radial Deviation Active (degrees) 28 Left Wrist ROM WFL Yes Flexion Active (degrees) 60 Extension Active (degrees) 38 Ulnar Deviation Active (degrees) 16 Radial Deviation Active (degrees) 28 PT-OP-M Strength Start: 12/18/20 14:12 Freq: Status: Active Protocol: Document 12/21/20 09:53 LRN (Rec: 12/21/20 10:41 LRN [id number]) Elbow/Forearm Strength Elbow and Forearm Manual Muscle Testing Right Comments 5/5 Left Supination 4 Good Comments 5/5 with pain at elbow and L wrist on testing of flex/ext Wrist Strength Wrist Manual Muscle Testing Right Comments 5/5 Left Comments Held Hand Tactical Debriefer/Pinch Strength Hand Dominance Hand Dominance Right Hand Strength Right Tactical Debriefer (lbs) 71 Comments 70, 72, 72 Left Tactical Debriefer (lbs) 47 Comments 45, 50, 47 PT-OP-Q Treatments Start: 12/18/20 14:12 Freq: Status: Active Protocol: Document 12/21/20 09:53 LRN (Rec: 12/21/20 10:41 LRN [id number]) Self-Care/Home Management Treatment Education Other Education Discussed results of evaluation, goals, and plan of care. Educated pt in Heat if cryotherapy is not tolerable. Activities Self-Care/Home Management Activities I/S pt in passive stretch to wrist for Ext & supination. PT-OP-T Assessment and Plan Start: 12/18/20 14:12 Freq: Status: Active Protocol: Document 12/21/20 09:53 LRN (Rec: 12/21/20 10:41 LRN [id number]) Physical Therapy Assessment Rehab Potential Rehabilitation Potential Good Evaluation Complexity Number of Personal Factors/Comorbidities 1-2 Number of Body Systems Impaired 4 or More Clinical Presentation at Evaluation Evolving Impairments Impairments Pain,ROM,Soft Tissue Mobility, Strength Goals Three Impairment Decreased L wrist strength ( 47# left, 71# right) Short Term Goal (STG) Improve management trainee program stores strength to 57# ( 20% of right) STG Duration 01/18/21 Prison Goal (LTG) Improve L wrist strength with pt able to pull up socks without sharp pain. LTG Duration 02/19/21 Two Impairment Decreased L wrist ROM in deg's (Ext: 38 L, 54 R; UD 17 L, 28 R) Short Term Goal (STG) Improve L wrist AROM with pt will be able to move his hand in UD/RD (up/down) without sharp pain. STG Duration 01/18/21 Oil Field Technician Goal (LTG) Improve L wrist mobility with the pt able to tuck in his T- shirt with mild L lateral wrist discomfort (eliminate sharp pain, rated 4/10). LTG Duration 02/19/21 One Impairment Pt lacks a self care HEP Prison Goal (LTG) Pt will be independent in a self care HEP. LTG Duration 02/19/21 Assessment Summary Assessment Pt is a 75 yo male who presents with a strain at the L lateral (ulnar side) wrist. Assessment of the small bones was deferred due to noted increased swelling at the wrist from ROM and strength assessment of the wrist and elbow. He has pain with MMT of the elbow. Testing of the ulnar bone with a tuning fork would indicate probably no fracture of the ulna. The pt is limited with L wrist ext and UD ROM and with strength of the elbow and wrist ( primarily UD and supination). Tactical Debriefer strength is expected to improve as wrist and elbow strength improve although the pt is R handed; therefore decreased L management trainee program stores strength may be more associated to his being R handed. The pt will benefit from skilled physical therapy to improve L wrist mobility and strength as well as elbow strength and improve functional use of the L wrist/ hand. Physical Therapy Plan Frequency and Duration Frequency of Treatment 2x/Week Plan of Care Start Date 12/21/20 Plan of Care End Date 02/19/21 Therapeutic Interventions Therapeutic Interventions Home Exercise Program,Joint Mobilizations,Manual Therapy, Patient/Caregiver Education, Self-Care/Home Management,Soft Tissue Mobilization,Taping, Therapeutic Exercises Modalities Cold Pack/Ice Massage,Hot Packs Next Visit Focus/Plan Next Note Type Treatment Note Next Visit Plan Initiate gentle wrist ROM (ext , supination and UD), and strengthening, and STM of wrist extensor; strengthening of elbow (flex/ext/sup/pron), f/b modalities to decreased pain (Paraffin dip, ice). Progression of HEP.
--- NOTE | 2021-01-03 12:20 | PT.OTN ---
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 PT-OP-B Current Condition Start: 12/18/20 14:12 Freq: Status: Active Protocol: Document 12/21/20 09:53 LRN (Rec: 12/21/20 10:41 LRN [id number]) Current Condition History of Current Condition Onset Date 10/23/20 Current Complaints L forearm pain. History of Current Condition States he jammed a shovel into the ground and hit a rock, causing the shovel to stop and the hand kept going. He has been wearing a wrist splint. Wore a splint for 6 wks, then was seen for f/u and was told he needed to wear the splint outside but not in the house for 3 wks. He has been working outside daily. Pt reports pain at ulnar side of lateral wrist joint and pain is at distal ulnar and at the joint. His pain is not worse and he feels better after wearing the splint. Splint helps keep him from overusing. Prior Treatments and Tests No meds. Uses a salve of 1% hydrocortisone mostly right before bedtime for the pain. X-rays: No fractures. Treatment Goals Patient/Caregiver Goals Pt goal is for his L lateral wrist to not hurt with the sharp pain (rated 4/10) tucking in T-shirt, or up/down movement of wrist (UD/RD). States he is okay with the ache, rated 2/10. At rest no pain. Prior Functional Status Baseline Function- ADL's Independent Baseline Function- Mobility Independent Baseline Function- Recreation/Hobbies [place]. Current Functional Impairments (Reported) Functional Limitations- ADL's L lateral wrist to not hurt with the sharp pain (rated 4/ 10) tucking in T-shirt, or up/ down movement of wrist (UD/RD) . Sharp pain with pulling up socks. Functional Limitations- Recreation/ Wears brace with outside Hobbies activities. Limited with cutting small twigs off bushes due to soreness. Personal Factors Other Personal Factors That May Effect Unknown low pulse (45-55) Therapy/Recovery condition and he is seeing a dry plasterer helper, arthritis of bilateral thumbs. PT-OP-C Subjective Start: 12/18/20 14:12 Freq: Status: Active Protocol: Document 01/03/21 11:22 LRN (Rec: 01/03/21 12:18 LRN [id number]) OP-PT Subjective Patient Comments Patient Comments Doing better, not aching all the time anymore. No pain currently. PT-OP-F Manual Assessment Start: 12/18/20 14:12 Freq: Status: Active Protocol: Document 12/21/20 09:53 LRN (Rec: 12/21/20 10:41 LRN [id number]) Manual Assessments Soft Tissue Assessment Soft Tissue Mobility Assessment Slightly warm and tender at L ulna and distal end of ulna. Other Manual Assessments Other Manual Assessments L ulna tuning fork assessment - negative for pain. PT-OP-J Posture/Palpation/Skin Start: 12/18/20 14:12 Freq: Status: Active Protocol: Document 12/21/20 09:53 LRN (Rec: 12/21/20 10:41 LRN [id number]) Posture Evaluation Position Sitting Shoulder Posture Neutral Arm Posture (L) Neutral,(R) Neutral Comments Posture Comments Swelling at and above L distal end of ulna. PT-OP-K Range of Motion Start: 12/18/20 14:12 Freq: Status: Active Protocol: Document 12/21/20 09:53 LRN (Rec: 12/21/20 10:41 LRN [id number]) Elbow/Forearm Range of Motion Elbow/Forearm Right Active Elbow/Forearm ROM WFL Yes ROM Testing Position Sitting Pronation (degrees) 90 Supination (degrees) 80 Comments Elbow flexed Left Active Elbow/Forearm ROM WFL Yes ROM Testing Position Sitting Pronation (degrees) 90 Supination (degrees) 80 Comments AROM is WNL Mild pain at L lateral wrist with supination Wrist Goniometric Range of Motion Wrist Right Wrist ROM WFL Yes Flexion Active (degrees) 60 Extension Active (degrees) 54 Ulnar Deviation Active (degrees) 28 Radial Deviation Active (degrees) 28 Left Wrist ROM WFL Yes Flexion Active (degrees) 60 Extension Active (degrees) 38 Ulnar Deviation Active (degrees) 16 Radial Deviation Active (degrees) 28 PT-OP-M Strength Start: 12/18/20 14:12 Freq: Status: Active Protocol: Document 12/21/20 09:53 LRN (Rec: 12/21/20 10:41 LRN [id number]) Elbow/Forearm Strength Elbow and Forearm Manual Muscle Testing Right Comments 5/5 Left Supination 4 Good Comments 5/5 with pain at elbow and L wrist on testing of flex/ext Wrist Strength Wrist Manual Muscle Testing Right Comments 5/5 Left Comments Held Hand Plate Mill Hand/Pinch Strength Hand Dominance Hand Dominance Right Hand Strength Right Plate Mill Hand (lbs) 71 Comments 70, 72, 72 Left Plate Mill Hand (lbs) 47 Comments 45, 50, 47 PT-OP-Q Treatments Start: 12/18/20 14:12 Freq: Status: Active Protocol: Document 01/03/21 11:22 LRN (Rec: 01/03/21 12:18 LRN [id number]) Therapeutic Exercises Sitting Exercises Fist squeezes Sitting Exercise Name Fist squeeze Side left Equipment Used Yellow Theraputty Reps/Minutes 30x Wrist UD strengthening Sitting Exercise Name Isometric UD Side left Comments Limiting UD to painfree range (neutral to ~[address] strengthening Sitting Exercise Name Isometric RD Side left Comments Moving to different wrist RD range with contractions Wrist RD Sitting Exercise Name Active wrist RD in vertical wrist position Side left Reps/Minutes 10x Wrist Sup/Pron Side left Wrist Flex/Ext Side left Reps/Minutes 30x Standing Exercises Elbow Extension Standing Exercise Name Tricep Press to ceiling - Adelso wi/focus on Left Side left Reps/Minutes 30x Elbow curls Standing Exercise Name Elbow Curls - Adelso with focus on Left Side left Resistance 2# Reps/Minutes 30 Comments Ache stopped at 20 reps. Self-Care/Home Management Treatment Education Other Education Discussed Plan of Care with change of schedule a couple times. Activities Self-Care/Home Management Activities Issued & reviewed HEP: L Wrist Flex/Ext, Sup/Pron. L wrist UD/RD (to be done only if without pain) L Isometric Wrist UD/RD Ellbow curl/Tricep Press Fist squeeze ex. Issued Yellow TPutty. PT-OP-T Assessment and Plan Start: 12/18/20 14:12 Freq: Status: Active Protocol: Document 01/03/21 11:22 LRN (Rec: 01/03/21 12:18 LRN [id number]) Physical Therapy Assessment Goals Three Impairment Decreased L wrist strength ( 47# left, 71# right) Short Term Goal (STG) Improve credit collections specialist strength to 57# ( 20% of right) STG Duration 01/18/21 Group Home Goal (LTG) Improve L wrist strength with pt able to pull up socks without sharp pain. LTG Duration 02/19/21 Two Impairment Decreased L wrist ROM in deg's (Ext: 38 L, 54 R; UD 17 L, 28 R) Short Term Goal (STG) Improve L wrist AROM with pt will be able to move his hand in UD/RD (up/down) without sharp pain. STG Duration 01/18/21 Car Examiner Goal (LTG) Improve L wrist mobility with the pt able to tuck in his T- shirt with mild L lateral wrist discomfort (eliminate sharp pain, rated 4/10). LTG Duration 02/19/21 One Impairment Pt lacks a self care HEP Group Home Goal (LTG) Pt will be independent in a self care HEP. LTG Duration 02/19/21 (01/03/21: Progressed ) Progress Towards Goals Progress Comments Progressed HEP. Improved AROM of L wrist UD with ex of RD with wrist in vertical position. Assessment Summary Assessment Pt able to move L wrist into UD a little more with AROM with wrist in vertical , going from neutral to ~ 10 deg's UD without pain. Pt showed good understanding of ex's for HEP . Pt is not able to perform wrist & elbow AROM without pain if no resistance. Pt L wrist sore with elbow curl ex after ~20 reps. Pt chooses to use cryotherapy when home. Physical Therapy Plan Frequency and Duration Frequency of Treatment 2x/Week Plan of Care Start Date 12/21/20 Plan of Care End Date 02/19/21 Next Visit Focus/Plan Next Note Type Treatment Note Next Visit Plan Dscuss POC for return on Fri or only 1x next week. Review ROM exercises and start gentle wrist ROM in palm down position for UD, and strengthening ex's issued. STM of wrist extensor; review strengthening of elbow flex/ ext and add strengthening of sup/pron if tolerated. End with ice if needed for pain management. Progression of HEP.
--- NOTE | 2021-01-07 14:17 | PT.OTN ---
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 PT-OP-B Current Condition Start: 12/18/20 14:12 Freq: Status: Active Protocol: Document 12/21/20 09:53 LRN (Rec: 12/21/20 10:41 LRN [id number]) Current Condition History of Current Condition Onset Date 10/23/20 Current Complaints L forearm pain. History of Current Condition States he jammed a shovel into the ground and hit a rock, causing the shovel to stop and the hand kept going. He has been wearing a wrist splint. Wore a splint for 6 wks, then was seen for f/u and was told he needed to wear the splint outside but not in the house for 3 wks. He has been working outside daily. Pt reports pain at ulnar side of lateral wrist joint and pain is at distal ulnar and at the joint. His pain is not worse and he feels better after wearing the splint. Splint helps keep him from overusing. Prior Treatments and Tests No meds. Uses a salve of 1% hydrocortisone mostly right before bedtime for the pain. X-rays: No fractures. Treatment Goals Patient/Caregiver Goals Pt goal is for his L lateral wrist to not hurt with the sharp pain (rated 4/10) tucking in T-shirt, or up/down movement of wrist (UD/RD). States he is okay with the ache, rated 2/10. At rest no pain. Prior Functional Status Baseline Function- ADL's Independent Baseline Function- Mobility Independent Baseline Function- Recreation/Hobbies Gardens. Current Functional Impairments (Reported) Functional Limitations- ADL's L lateral wrist to not hurt with the sharp pain (rated 4/ 10) tucking in T-shirt, or up/ down movement of wrist (UD/RD) . Sharp pain with pulling up socks. Functional Limitations- Recreation/ Wears brace with outside Hobbies activities. Limited with cutting small twigs off bushes due to soreness. Personal Factors Other Personal Factors That May Effect Unknown low pulse (45-55) Therapy/Recovery condition and he is seeing a regional sales manager, arthritis of bilateral thumbs. PT-OP-C Subjective Start: 12/18/20 14:12 Freq: Status: Active Protocol: Document 01/07/21 10:37 LRN (Rec: 01/07/21 11:25 LRN [id number]) OP-PT Subjective Patient Comments Patient Comments Once in awhile sharp pain doing things. Icing has helped. Patient Reported Progress Improving PT-OP-F Manual Assessment Start: 12/18/20 14:12 Freq: Status: Active Protocol: Document 12/21/20 09:53 LRN (Rec: 12/21/20 10:41 LRN [id number]) Manual Assessments Soft Tissue Assessment Soft Tissue Mobility Assessment Slightly warm and tender at L ulna and distal end of ulna. Other Manual Assessments Other Manual Assessments L ulna tuning fork assessment - negative for pain. PT-OP-J Posture/Palpation/Skin Start: 12/18/20 14:12 Freq: Status: Active Protocol: Document 12/21/20 09:53 LRN (Rec: 12/21/20 10:41 LRN [id number]) Posture Evaluation Position Sitting Shoulder Posture Neutral Arm Posture (L) Neutral,(R) Neutral Comments Posture Comments Swelling at and above L distal end of ulna. PT-OP-K Range of Motion Start: 12/18/20 14:12 Freq: Status: Active Protocol: Document 01/07/21 10:37 LRN (Rec: 01/07/21 11:25 LRN [id number]) Wrist Goniometric Range of Motion Wrist Right Wrist ROM WFL Yes Left Wrist ROM WFL No Ulnar Deviation Active (degrees) 22 Radial Deviation Active (degrees) 35 PT-OP-M Strength Start: 04/20/21 14:12 Freq: Status: Active Protocol: Document 12/21/20 09:53 LRN (Rec: 12/21/20 10:41 LRN [id number]) Elbow/Forearm Strength Elbow and Forearm Manual Muscle Testing Right Comments 5/5 Left Supination 4 Good Comments 5/5 with pain at elbow and L wrist on testing of flex/ext Wrist Strength Wrist Manual Muscle Testing Right Comments 5/5 Left Comments Held Hand Charge Authorizer/Pinch Strength Hand Dominance Hand Dominance Right Hand Strength Right Charge Authorizer (lbs) 71 Comments 70, 72, 72 Left Charge Authorizer (lbs) 47 Comments 45, 50, 47 PT-OP-Q Treatments Start: 12/18/20 14:12 Freq: Status: Active Protocol: Document 01/07/21 10:37 LRN (Rec: 01/07/21 11:25 LRN [id number]) Therapeutic Exercises Sitting Exercises Elbow curls Sitting Exercise Name Forearm in Pron & Sup Side left Reps/Minutes 15x 2 each Fist squeezes Sitting Exercise Name Full Fist squeeze Side left Reps/Minutes 30x Wrist UD strengthening Sitting Exercise Name Isometric UD Side left Reps/Minutes 5 hold x 10 Comments Limiting UD to painfree range (neutral to ~10 deg's) Wrist RD strengthening Sitting Exercise Name Isometric RD Side left Reps/Minutes 5 hold x 10 Comments Moving to different wrist RD range with contractions, extr time for review Wrist RD Sitting Exercise Name Active wrist RD/UD in vertical wrist position Side left Reps/Minutes 10x Wrist Sup/Pron Sitting Exercise Name Active sup/pron, limiting to painfree range (supination slightly limited) Side left Reps/Minutes 3' Comments Throughout ex, pt needed repositioning of wrist/forearm to limit wrist pain Wrist Flex/Ext Sitting Exercise Name In Sup/Pron: Acitve wrist flex/ext Side left Reps/Minutes 10x 2 Comments Sup& Pron: Wrist because sore after ex Standing Exercises Elbow Extension Standing Exercise Name Tricep Press to ceiling - Adelso wi/focus on Left Side left Reps/Minutes 15x 2 Comments Phys cuing for proper movement Elbow curls Standing Exercise Name Forearm in Pron & Sup Side left Resistance 2# Reps/Minutes 15x 2 each Comments v cuing for proper performance of ex. Manual Therapy Treatment Soft Tissue Mobilization L wrist Body Location L lateral wrist for MWM & anter/post side of distal wrist for TrP Mobilization Type Trigger Point Release Body Position Sitting Comments Posterior glide of Ulna with wrist flex/ext. Posterior & Anterior distal Ulna for TrP treatment (2 locations each) Self-Care/Home Management Treatment Education Other Education Discussed HEP with discussion of doing ex in different positions and re-inforcing pt to not exercise into or with L wrist pain.. Activities Self-Care/Home Management Activities Re-educated pt on proper Isometric UD strengthening. Pt needed review of most all exercises. PT-OP-T Assessment and Plan Start: 12/18/20 14:12 Freq: Status: Active Protocol: Document 01/07/21 10:37 LRN (Rec: 01/07/21 11:25 LRN [id number]) Physical Therapy Assessment Goals Three Impairment Decreased L wrist strength ( 47# left, 71# right) Short Term Goal (STG) Improve torpedo worker strength to 57# ( 20% of right) STG Duration 01/18/21 Senior Quality Engineer Goal (LTG) Improve L wrist strength with pt able to pull up socks without sharp pain. LTG Duration 02/19/21 Two Impairment Decreased L wrist ROM in deg's (Ext: 38 L, 54 R; UD 17 L, 28 R) Short Term Goal (STG) Improve L wrist AROM with pt will be able to move his hand in UD/RD (up/down) without sharp pain. STG Duration 01/18/21 Senior Quality Engineer Goal (LTG) Improve L wrist mobility with the pt able to tuck in his T- shirt with mild L lateral wrist discomfort (eliminate sharp pain, rated 4/10). LTG Duration 02/19/21 One Impairment Pt lacks a self care HEP Half-Way Goal (LTG) Pt will be independent in a self care HEP. LTG Duration 02/19/21 (01/03/21: Progressed ) Assessment Summary Assessment Pt lateral L wrist became sore after doing wrist ext with forearm in supination and less toleratant in pronation. Pt able to do elobw ex's without pain. Cuing and review needed for all ex's. Questionable understanding of UD strengthening. Pt may need review of ex's again due to questionable recall of doing ex's correctly. Pt needing cryotherapy to end but is choosing to do at home. Physical Therapy Plan Frequency and Duration Frequency of Treatment 2x/Week Plan of Care Start Date 12/21/20 Plan of Care End Date 02/19/21 Next Visit Focus/Plan Next Note Type Treatment Note Next Visit Plan Decrease visits to 1x week if pt able to do ex's correctly. Review ROM exercises and start gentle wrist ROM in palm down position for UD, and strengthening ex's issued. STM/TrP treatments of wrist extensora/flexors; review strengthening of elbow flex/ ext and add strengthening of sup/pron if tolerated. End with ice if needed for pain management. Progression of HEP.
--- NOTE | 2021-01-11 10:47 | PT.OTN ---
Current Diagnoses Pain in left wrist (01/11/21) Muscle weakness (generalized) (01/11/21) Pain in left forearm (01/11/21) Physical Therapy Treatment Note PT-OP-A Visit Information Start: 12/18/20 14:12 Freq: Status: Active Protocol: Document 01/11/21 08:17 LRN (Rec: 01/11/21 09:04 LRN [id number]) Out-Patient Physical Therapy Visit Information Visit Information Visit Type Treatment Note Visit Start Time 08:17 Visit Stop Time 08:59 Total Visit Minutes 42 Visit Number 4 PT-OP-B Current Condition Start: 12/18/20 14:12 Freq: Status: Active Protocol: Document 12/21/20 09:53 LRN (Rec: 12/21/20 10:41 LRN [id number]) Current Condition History of Current Condition Onset Date 10/23/20 Current Complaints L forearm pain. History of Current Condition States he jammed a shovel into the ground and hit a rock, causing the shovel to stop and the hand kept going. He has been wearing a wrist splint. Wore a splint for 6 wks, then was seen for f/u and was told he needed to wear the splint outside but not in the house for 3 wks. He has been working outside daily. Pt reports pain at ulnar side of lateral wrist joint and pain is at distal ulnar and at the joint. His pain is not worse and he feels better after wearing the splint. Splint helps keep him from overusing. Prior Treatments and Tests No meds. Uses a salve of 1% hydrocortisone mostly right before bedtime for the pain. X-rays: No fractures. Treatment Goals Patient/Caregiver Goals Pt goal is for his L lateral wrist to not hurt with the sharp pain (rated 4/10) tucking in T-shirt, or up/down movement of wrist (UD/RD). States he is okay with the ache, rated 2/10. At rest no pain. Prior Functional Status Baseline Function- ADL's Independent Baseline Function- Mobility Independent Baseline Function- Recreation/[place]obbies [place]. Current Functional Impairments (Reported) Functional Limitations- ADL's L lateral wrist to not hurt with the sharp pain (rated 4/ 10) tucking in T-shirt, or up/ down movement of wrist (UD/RD) . Sharp pain with pulling up socks. Functional Limitations- Recreation/ Wears brace with outside Hobbies activities. Limited with cutting small twigs off bushes due to soreness. Personal Factors Other Personal Factors That May Effect Unknown low pulse (45-55) Therapy/Recovery condition and he is seeing a artificial leather calender operator, arthritis of bilateral thumbs. PT-OP-C Subjective Start: 12/18/20 14:12 Freq: Status: Active Protocol: Document 01/11/21 08:17 LRN (Rec: 01/11/21 09:04 LRN [id number]) OP-PT Subjective Patient Comments Patient Comments No worse. Patient Reported Progress Same PT-OP-F Manual Assessment Start: 12/18/20 14:12 Freq: Status: Active Protocol: Document 12/21/20 09:53 LRN (Rec: 12/21/20 10:41 LRN [id number]) Manual Assessments Soft Tissue Assessment Soft Tissue Mobility Assessment Slightly warm and tender at L ulna and distal end of ulna. Other Manual Assessments Other Manual Assessments L ulna tuning fork assessment - negative for pain. PT-OP-J Posture/Palpation/Skin Start: 12/18/20 14:12 Freq: Status: Active Protocol: Document 12/21/20 09:53 LRN (Rec: 12/21/20 10:41 LRN [id number]) Posture Evaluation Position Sitting Shoulder Posture Neutral Arm Posture (L) Neutral,(R) Neutral Comments Posture Comments Swelling at and above L distal end of ulna. PT-OP-K Range of Motion Start: 12/18/20 14:12 Freq: Status: Active Protocol: Document 01/07/21 10:37 LRN (Rec: 01/07/21 11:25 LRN [id number]) Wrist Goniometric Range of Motion Wrist Right Wrist ROM WFL Yes Left Wrist ROM WFL No Ulnar Deviation Active (degrees) 22 Radial Deviation Active (degrees) 35 PT-OP-M Strength Start: 12/18/20 14:12 Freq: Status: Active Protocol: Document 12/21/20 09:53 LRN (Rec: 12/21/20 10:41 LRN [id number]) Elbow/Forearm Strength Elbow and Forearm Manual Muscle Testing Right Comments 5/5 Left Supination 4 Good Comments 5/5 with pain at elbow and L wrist on testing of flex/ext Wrist Strength Wrist Manual Muscle Testing Right Comments 5/5 Left Comments Held Hand Product Line Manager/Pinch Strength Hand Dominance Hand Dominance Right Hand Strength Right Product Line Manager (lbs) 71 Comments 70, 72, 72 Left Product Line Manager (lbs) 47 Comments 45, 50, 47 PT-OP-Q Treatments Start: 12/18/20 14:12 Freq: Status: Active Protocol: Document 01/11/21 08:17 LRN (Rec: 01/11/21 09:04 LRN [id number]) Therapeutic Exercises Sitting Exercises Wrist UD strengthening Sitting Exercise Name Isometric UD in 3 diff angles Side left Reps/Minutes 5 hold x 5 each Comments Extra time taken to review stretch and change to varying angles Wrist RD strengthening Sitting Exercise Name Isometric RD Side left Reps/Minutes 5 hold x 10 Comments Extra time taken to review stretch and change to varying angles Wrist RD Sitting Exercise Name Active wrist RD/UD in vertical wrist position Side left Reps/Minutes 10x Wrist Sup/Pron Sitting Exercise Name Active sup/pron, limiting to painfree range (supination slightly limited) Side left Reps/Minutes 3' Comments Throughout ex, pt needed repositioning of wrist/forearm to limit wrist pain Wrist Flex/Ext Sitting Exercise Name In Sup/Pron: Active wrist flex/ext Side left Equipment Used 0# ext ,2# flex Reps/Minutes 10x 3 Comments Max wgt tolerance determined Standing Exercises Elbow Extension Standing Exercise Name Tricep Press to ceiling - Adelso wi/focus on Left Side left Reps/Minutes 15x 2 Comments Phys cuing for proper movement Elbow curls Standing Exercise Name Forearm in Pron & Sup, neutral Side left Resistance 3# Reps/Minutes 15x 2 each Comments Product Line Manager needed changing to not include thumb Manual Therapy Treatment Manual Techniques MWM for Sup Type L wrist ulna glide superior and anterior Body Location L wrist Body Position Sitting Reps/Duration 10x w/assist & 10x w/o assist x 2 MWM for UD Type L wrist Compression w/ulna superior and anterior glide Body Location L wrist Body Position Sitting Reps/Duration 10x w/assist & 10x w/o assist x 2 PT-OP-T Assessment and Plan Start: 12/18/20 14:12 Freq: Status: Active Protocol: Document 01/11/21 08:17 LRN (Rec: 01/11/21 09:04 LRN [id number]) Physical Therapy Assessment Goals Three Impairment Decreased L wrist strength ( 47# left, 71# right) Short Term Goal (STG) Improve transit mix operator strength to 57# ( 20% of right) STG Duration 01/18/21 Senior Living Goal (LTG) Improve L wrist strength with pt able to pull up socks without sharp pain. LTG Duration 02/19/21 Two Impairment Decreased L wrist ROM in deg's (Ext: 38 L, 54 R; UD 17 L, 28 R) Short Term Goal (STG) Improve L wrist AROM with pt will be able to move his hand in UD/RD (up/down) without sharp pain. STG Duration 01/18/21 Section Repairer Goal (LTG) Improve L wrist mobility with the pt able to tuck in his T- shirt with mild L lateral wrist discomfort (eliminate sharp pain, rated 4/10). LTG Duration 02/19/21 One Impairment Pt lacks a self care HEP Section Repairer Goal (LTG) Pt will be independent in a self care HEP. (01/11/21: Verbally I/S pt on use of resistance to ex's that he can do without pain). LTG Duration 02/19/21 (01/03/21: Progressed ) Assessment Summary Assessment Pt progress is slow, but may be due to his gardening activities that he reportedly has some pain with. MWM L wrist compression, with PA & upper glide of ulna) helped relieve pain with UD. Pt able to tolerate resistance with some ex's, UD & sup remain difficult due to ulnar pain. R thumb pain at IP jt when gripping with thumb. Pt choosing to ice at home. Physical Therapy Plan Frequency and Duration Frequency of Treatment 2x/Week Plan of Care Start Date 12/21/20 Plan of Care End Date 02/19/21 Next Visit Focus/Plan Next Note Type Treatment Note Next Visit Plan Cont 2x/week for 2-3 more weeks until pt can be progressed on his strengthening program without pain, then decrease to 1x week for self care progression. Cont gentle wrist ROM in palm down position for UD, and strengthening ex's. STM/TrP treatments of wrist extensora/ flexors; review strengthening ex's and add strengthening of sup/pron if tolerated. End with ice if needed for pain management. Progression of HEP.
--- NOTE | 2021-01-16 15:05 | PT.OTN ---
Current Diagnoses Pain in left wrist (01/16/21) Muscle weakness (generalized) (01/16/21) Pain in left forearm (01/16/21) Physical Therapy Treatment Note PT-OP-A Visit Information Start: 12/18/20 14:12 Freq: Status: Active Protocol: Document 01/16/21 08:17 LRN (Rec: 01/16/21 09:06 LRN [id number]) Out-Patient Physical Therapy Visit Information Visit Information Visit Type Treatment Note Visit Start Time 08:16 Visit Stop Time 09:00 Total Visit Minutes 44 Visit Number 5 Evaluation Information Evaluation Date 12/21/20 Precautions Precautions [place] in [place] [facility] [place], Rectal CA (2003) with surgical removal f/b chemo & radiation with checks during annual physicals, Diabetes type 2, Controlled HBP. PT-OP-B Current Condition Start: 12/18/20 14:12 Freq: Status: Active Protocol: Document 12/21/20 09:53 LRN (Rec: 12/21/20 10:41 LRN [id number]) Current Condition History of Current Condition Onset Date 10/23/20 Current Complaints L forearm pain. History of Current Condition States he jammed a shovel into the ground and hit a rock, causing the shovel to stop and the hand kept going. He has been wearing a wrist splint. Wore a splint for 6 wks, then was seen for f/u and was told he needed to wear the splint outside but not in the house for 3 wks. He has been working outside daily. Pt reports pain at ulnar side of lateral wrist joint and pain is at distal ulnar and at the joint. His pain is not worse and he feels better after wearing the splint. Splint helps keep him from overusing. Prior Treatments and Tests No meds. Uses a salve of 1% hydrocortisone mostly right before bedtime for the pain. X-rays: No fractures. Treatment Goals Patient/Caregiver Goals Pt goal is for his L lateral wrist to not hurt with the sharp pain (rated 4/10) tucking in T-shirt, or up/down movement of wrist (UD/RD). States he is okay with the ache, rated 2/10. At rest no pain. Prior Functional Status Baseline Function- ADL's Independent Baseline Function- Mobility Independent Baseline Function- Recreation/Hobbies Gardens. Current Functional Impairments (Reported) Functional Limitations- ADL's L lateral wrist to not hurt with the sharp pain (rated 4/ 10) tucking in T-shirt, or up/ down movement of wrist (UD/RD) . Sharp pain with pulling up socks. Functional Limitations- Recreation/ Wears brace with outside Hobbies activities. Limited with cutting small twigs off bushes due to soreness. Personal Factors Other Personal Factors That May Effect Unknown low pulse (45-55) Therapy/Recovery condition and he is seeing a starcher and tenter range feeder, arthritis of bilateral thumbs. PT-OP-C Subjective Start: 12/18/20 14:12 Freq: Status: Active Protocol: Document 01/16/21 08:17 LRN (Rec: 01/16/21 09:06 LRN [id number]) OP-PT Subjective Patient Comments Patient Comments States his L wrist has only a little pain and the wrist feels like it is starting to heal. Has still been out in garden with wrap on wrist. Hasn't waken him up at night. OP-PT Pain Assessment Pain Assessment Grid Paper Pain Assessment Grid Completed No Location L wrist Pain Location Details L wrist Intensity 2 Description- Other Aches at night PT-OP-F Manual Assessment Start: 12/18/20 14:12 Freq: Status: Active Protocol: Document 12/21/20 09:53 LRN (Rec: 12/21/20 10:41 LRN [id number]) Manual Assessments Soft Tissue Assessment Soft Tissue Mobility Assessment Slightly warm and tender at L ulna and distal end of ulna. Other Manual Assessments Other Manual Assessments L ulna tuning fork assessment - negative for pain. PT-OP-J Posture/Palpation/Skin Start: 12/18/20 14:12 Freq: Status: Active Protocol: Document 12/21/20 09:53 LRN (Rec: 12/21/20 10:41 LRN [id number]) Posture Evaluation Position Sitting Shoulder Posture Neutral Arm Posture (L) Neutral,(R) Neutral Comments Posture Comments Swelling at and above L distal end of ulna. PT-OP-K Range of Motion Start: 12/18/20 14:12 Freq: Status: Active Protocol: Document 01/16/21 08:17 LRN (Rec: 01/16/21 09:06 LRN [id number]) Wrist Goniometric Range of Motion Wrist Left Wrist ROM WFL No Ulnar Deviation Active (degrees) 13 Radial Deviation Active (degrees) 25 PT-OP-M Strength Start: 12/18/20 14:12 Freq: Status: Active Protocol: Document 01/16/21 08:17 LRN (Rec: 01/16/21 09:06 LRN [id number]) Hand Miniature Model Maker/Pinch Strength Hand Strength Right Miniature Model Maker (lbs) 71 Comments 70, 72, 72 Left Miniature Model Maker (lbs) 62 Comments 60, 60, 65 PT-OP-Q Treatments Start: 12/18/20 14:12 Freq: Status: Active Protocol: Document 01/16/21 08:17 LRN (Rec: 01/16/21 09:06 LRN [id number]) Therapeutic Exercises Sitting Exercises Pron/Sup strengthening Sitting Exercise Name Pron/Sup strengthening Equipment Used Rolling pin, holding just off midline Reps/Minutes 8' Wrist UD strengthening Sitting Exercise Name Isometric UD in 3 diff angles Side left Reps/Minutes 5 hold x 5 each Comments Extra time taken to review stretch and change to varying angles Wrist RD strengthening Sitting Exercise Name Isometric RD Side left Reps/Minutes 5 hold x 10 Comments Extra time taken to review stretch and change to varying angles Wrist RD Sitting Exercise Name Active wrist RD/UD in vertical wrist position Side left Reps/Minutes 4' Comments with MWM Wrist Sup/Pron Sitting Exercise Name Active sup/pron, limiting to painfree range (supination slightly limited) Side left Reps/Minutes 3' Comments Throughout ex, pt needed repositioning of wrist/forearm to limit wrist pain Wrist Flex/Ext Sitting Exercise Name In Sup/Pron: Active wrist flex/ext Side left Equipment Used 0# Reps/Minutes 10x 3 Manual Therapy Treatment Soft Tissue Mobilization L wrist Body Location L lateral wrist for MWM & anter/post side of distal wrist for TrP Mobilization Type Trigger Point Release Body Position Sitting Comments Posterior glide of Ulna with wrist flex/ext. Posterior & Anterior distal Ulna for TrP treatment (2 locations each) Manual Techniques MWM for Sup Type L wrist ulna glide superior and anterior Body Location L wrist Body Position Sitting Reps/Duration 10x w/assist & 10x w/o assist x 2 MWM for UD Type L wrist Compression w/ulna superior and anterior glide Body Location L wrist Body Position Sitting Reps/Duration 10x w/assist & 10x w/o assist x 2 Self-Care/Home Management Treatment Education Patient Education Home Exercise Program Activities Self-Care/Home Management Activities Re-issued & reviewed Wrist isometric UD/RD with I/S for strengthening in varying angle degrees. PT-OP-T Assessment and Plan Start: 12/18/20 14:12 Freq: Status: Active Protocol: Document 01/16/21 08:17 LRN (Rec: 01/16/21 09:06 LRN [id number]) Physical Therapy Assessment Goals Three Impairment Decreased L wrist strength ( 47# left, 71# right) Short Term Goal (STG) Improve sap business objects consultant strength to 57# ( 20% of right) STG Duration 01/18/21 Fpc Goal (LTG) Improve L wrist strength with pt able to pull up socks without sharp pain. LTG Duration 02/19/21 Two Impairment Decreased L wrist ROM in deg's (Ext: 38 L, 54 R; UD 17 L, 28 R) Short Term Goal (STG) Improve L wrist AROM with pt will be able to move his hand in UD/RD (up/down) without sharp pain. STG Duration 01/18/21 Fpc Goal (LTG) Improve L wrist mobility with the pt able to tuck in his T- shirt with mild L lateral wrist discomfort (eliminate sharp pain, rated 4/10). LTG Duration 02/19/21 One Impairment Pt lacks a self care HEP Fpc Goal (LTG) Pt will be independent in a self care HEP. (01/11/21: Verbally I/S pt on use of resistance to ex's that he can do without pain). LTG Duration 02/19/21 (01/03/21: Progressed ) Progress Towards Goals Progress Comments Pt able to pull socks up without sharp pain. Assessment Summary Assessment Pt still needing training on isometric wrist UD/RD ex due to confusion of hand placements and max resistance to apply. Pt starting progressive strengthening phase of wrist/forearm; therefore decrease to 1x/week for pt to progress on home exercises. Pt not ready for T -'band ex at various ranges with wrist/forearm strengthening with all motions due to pain. Physical Therapy Plan Frequency and Duration Frequency of Treatment 1x/Week Plan of Care Start Date 12/21/20 Plan of Care End Date 02/19/21 Next Visit Focus/Plan Next Note Type Treatment Note Next Visit Plan To start: Check pinch strength and wrist painfree ROM. Cont 1x/week for 2-3 more weeks for progression of wrist strengthening program without pain and progression to independent self care program. Cont gentle wrist ROM in pronation for UD. STM/TrP/MWM treatments of wrist extensor/ flexors if needed; review sona strengthening ex's and cont progression of sup/pron strengthening as tolerated. Pt choosing to ice at home. Progress to T-Band ex's when pt ready, then plan for DC.
--- NOTE | 2021-01-25 10:56 | PT.OTN ---
Current Diagnoses Pain in left wrist (01/25/21) Muscle weakness (generalized) (01/25/21) Pain in left forearm (01/25/21) Physical Therapy Treatment Note PT-OP-A Visit Information Start: 12/18/20 14:12 Freq: Status: Active Protocol: Document 01/25/21 09:40 OF (Rec: 01/25/21 10:55 OF [email or web address]) Out-Patient Physical Therapy Visit Information Visit Information Visit Type Treatment Note Visit Start Time 09:05 Visit Stop Time 09:40 Total Visit Minutes 35 Visit Number 6 Evaluation Information Evaluation Date 12/21/20 Precautions Precautions Arthritis in adelso thumbs at [facility] j[facility], Rectal CA (2003) with surgical removal f/b chemo & radiation with checks during annual physicals, Diabetes type 2, Controlled HBP. PT-OP-B Current Condition Start: 12/18/20 14:12 Freq: Status: Active Protocol: Document 12/21/20 09:53 LRN (Rec: 12/21/20 10:41 LRN [id number]) Current Condition History of Current Condition Onset Date 10/23/20 Current Complaints L forearm pain. History of Current Condition States he jammed a shovel into the ground and hit a rock, causing the shovel to stop and the hand kept going. He has been wearing a wrist splint. Wore a splint for 6 wks, then was seen for f/u and was told he needed to wear the splint outside but not in the house for 3 wks. He has been working outside daily. Pt reports pain at ulnar side of lateral wrist joint and pain is at distal ulnar and at the joint. His pain is not worse and he feels better after wearing the splint. Splint helps keep him from overusing. Prior Treatments and Tests No meds. Uses a salve of 1% hydrocortisone mostly right before bedtime for the pain. X-rays: No fractures. Treatment Goals Patient/Caregiver Goals Pt goal is for his L lateral wrist to not hurt with the sharp pain (rated 4/10) tucking in T-shirt, or up/down movement of wrist (UD/RD). States he is okay with the ache, rated 2/10. At rest no pain. Prior Functional Status Baseline Function- ADL's Independent Baseline Function- Mobility Independent Baseline Function- Recreation/Hobbies [place]. Current Functional Impairments (Reported) Functional Limitations- ADL's L lateral wrist to not hurt with the sharp pain (rated 4/ 10) tucking in T-shirt, or up/ down movement of wrist (UD/RD) . Sharp pain with pulling up socks. Functional Limitations- Recreation/ Wears brace with outside Hobbies activities. Limited with cutting small twigs off bushes due to soreness. Personal Factors Other Personal Factors That May Effect Unknown low pulse (45-55) Therapy/Recovery condition and he is seeing a textile machinery instructor, arthritis of bilateral thumbs. PT-OP-C Subjective Start: 12/18/20 14:12 Freq: Status: Active Protocol: Document 01/25/21 09:40 OF (Rec: 01/25/21 10:55 OF [email or web address]) OP-PT Subjective Patient Comments Patient Comments States his L wrist has improved. He has continued daily activities in garden, wears brace/wrap. States HEP is going well, pain is mostly 1/10 Patient Reported Progress Improving Patient Questionnaires Quick Dash- Upper Extremity Quick Dash UE Score 22.72 Quick Dash UE Impairment 20 to 39% Impaired (Score 20- 39) OP-PT Pain Assessment Pain Assessment Grid Paper Pain Assessment Grid Completed No Location L wrist Pain Location Details L wrist Intensity 1 Scale Used Numeric (0 - 10) Description Aching Description- Other Aches at night Frequency Intermittent Pain Aggravating Factors ADL's,Activity,Exercise Pain Alleviating Factors Inactivity,Position,Exercise PT-OP-F Manual Assessment Start: 12/18/20 14:12 Freq: Status: Active Protocol: Document 12/21/20 09:53 LRN (Rec: 12/21/20 10:41 LRN [id number]) Manual Assessments Soft Tissue Assessment Soft Tissue Mobility Assessment Slightly warm and tender at L ulna and distal end of ulna. Other Manual Assessments Other Manual Assessments L ulna tuning fork assessment - negative for pain. PT-OP-J Posture/Palpation/Skin Start: 12/18/20 14:12 Freq: Status: Active Protocol: Document 12/21/20 09:53 LRN (Rec: 12/21/20 10:41 LRN [id number]) Posture Evaluation Position Sitting Shoulder Posture Neutral Arm Posture (L) Neutral,(R) Neutral Comments Posture Comments Swelling at and above L distal end of ulna. PT-OP-K Range of Motion Start: 12/18/20 14:12 Freq: Status: Active Protocol: Document 01/25/21 09:40 OF (Rec: 01/25/21 10:55 [id number]) Elbow/Forearm Range of Motion Elbow/Forearm Right Active Elbow/Forearm ROM WFL Yes ROM Testing Position Sitting Pronation (degrees) 90 Supination (degrees) 80 Comments Elbow flexed Left Active Elbow/Forearm ROM WFL Yes ROM Testing Position Sitting Pronation (degrees) 90 Supination (degrees) 80 Comments AROM is WNL Mild pain at L lateral wrist with supination Wrist Goniometric Range of Motion Wrist Right Wrist ROM WFL Yes Flexion Active (degrees) 60 Extension Active (degrees) 54 Ulnar Deviation Active (degrees) 28 Radial Deviation Active (degrees) 28 Left Wrist ROM WFL No Ulnar Deviation Active (degrees) 13 Radial Deviation Active (degrees) 25 PT-OP-M Strength Start: 12/18/20 14:12 Freq: Status: Active Protocol: Document 01/25/21 09:40 OF (Rec: 01/25/21 10:55 [id number]) Elbow/Forearm Strength Elbow and Forearm Manual Muscle Testing Right Comments 5/5 Left Supination 4 Good Comments 5/5 with pain at elbow and L wrist on testing of flex/ext Wrist Strength Wrist Manual Muscle Testing Right Comments 5/5 Left Comments Held Hand Paper Products Inspector/Pinch Strength Hand Dominance Hand Dominance Right Hand Strength Right Paper Products Inspector (lbs) 71 Comments 70, 72, 72 Left Paper Products Inspector (lbs) 62 Comments 60, 60, 65 PT-OP-Q Treatments Start: 12/18/20 14:12 Freq: Status: Active Protocol: Document 01/25/21 09:40 OF (Rec: 01/25/21 10:55 [email or web address]) Therapeutic Exercises Sitting Exercises Pron/Sup strengthening Sitting Exercise Name Pron/Sup strengthening Equipment Used Rolling pin, holding just off midline Reps/Minutes 3x10 Elbow curls Sitting Exercise Name Forearm in Pron & Sup Side left Reps/Minutes 15x 2 each Fist squeezes Sitting Exercise Name Full Fist squeeze Side left Reps/Minutes 30x Wrist UD strengthening Sitting Exercise Name Isometric UD in 3 diff angles Side left Reps/Minutes 5 hold x 5 each Comments Extra time taken to review stretch and support forearm Wrist RD strengthening Sitting Exercise Name Isometric RD Side left Reps/Minutes 5 hold x 10 Comments Extra time taken to review stretch and change to varying angles Wrist RD Sitting Exercise Name Active wrist RD/UD in vertical wrist position Side left Reps/Minutes 2x2min Comments with MWM Wrist Sup/Pron Sitting Exercise Name Active sup/pron, limiting to painfree range (supination slightly limited) Side left Reps/Minutes 3' Comments Throughout ex, pt needed repositioning of wrist/forearm to limit wrist pain Wrist Flex/Ext Sitting Exercise Name In Sup/Pron: Active wrist flex/ext Side left Equipment Used 0# Reps/Minutes 10x 3 Standing Exercises Elbow Extension Standing Exercise Name Tricep Press to ceiling - [place] wi/focus on Left Side left Reps/Minutes 15x 2 Comments Phys cuing for proper movement Elbow curls Standing Exercise Name Forearm in Pron & Sup, neutral Side left Resistance 3# Reps/Minutes 15x 2 each Comments Paper Products Inspector needed changing to not include thumb Manual Therapy Treatment Soft Tissue Mobilization L wrist Body Location L lateral wrist for MWM & anter/post glides Mobilization Type Oscillations Intensity/Depth Moderate Body Position Sitting Comments Posterior glide of Ulna with wrist flex/ext. Posterior & Anterior distal Ulna [id number] Manual Techniques MWM for Sup Type L wrist ulna glide superior and anterior Body Location L wrist Body Position Sitting Reps/Duration 10x w/assist & 10x w/o assist x 2 MWM for UD Type L wrist Compression w/ulna superior and anterior glide Body Location L wrist Body Position Sitting Reps/Duration 10x w/assist & 10x w/o assist x 2 Self-Care/Home Management Treatment Education Patient Education Home Exercise Program Other Education pt advised to progress strengthening with pron/sup using hammer held at head to limit resistance. He is agreeable to exercise at pain level <4/10, rest if pain persists Activities Self-Care/Home Management Activities Reviewed self mobilizations, progressing HEP PT-OP-T Assessment and Plan Start: 12/18/20 14:12 Freq: Status: Active Protocol: Document 01/25/21 09:40 OF (Rec: 01/25/21 10:55 OF [email or web address]) Physical Therapy Assessment Rehab Potential Rehabilitation Potential Good Evaluation Complexity Number of Personal Factors/Comorbidities 1-2 Number of Body Systems Impaired 4 or More Clinical Presentation at Evaluation Evolving Impairments Impairments Pain,ROM,Soft Tissue Mobility, Strength Goals Three Impairment Decreased L wrist strength ( 47# left, 71# right) Short Term Goal (STG) Improve foil spinner strength to 57# ( 20% of right) STG Duration 01/18/21 Mcc Goal (LTG) Improve L wrist strength with pt able to pull up socks without sharp pain. LTG Duration 02/19/21 Two Impairment Decreased L wrist ROM in deg's (Ext: 38 L, 54 R; UD 17 L, 28 R) Short Term Goal (STG) Improve L wrist AROM with pt will be able to move his hand in UD/RD (up/down) without sharp pain. STG Duration 01/18/21 Transit Bus Operator Goal (LTG) Improve L wrist mobility with the pt able to tuck in his T- shirt with mild L lateral wrist discomfort (eliminate sharp pain, rated 4/10). LTG Duration 02/19/21 One Impairment Pt lacks a self care HEP Mcc Goal (LTG) Pt will be independent in a self care HEP. (01/11/21: Verbally I/S pt on use of resistance to ex's that he can do without pain). LTG Duration 02/19/21 (01/03/21: Progressed ) Progress Towards Goals Progress Comments Pt able to pull socks up without sharp pain. Assessment Summary Assessment Pt still needing training on HEP and proper progression with resistance. Pt not ready for T-'band ex at various ranges with wrist/forearm strengthening with all motions due to pain. Physical Therapy Plan Frequency and Duration Frequency of Treatment 1x/Week Plan of Care Start Date 12/21/20 Plan of Care End Date 02/19/21 Therapeutic Interventions Therapeutic Interventions Home Exercise Program,Joint Mobilizations,Manual Therapy, Patient/Caregiver Education, Self-Care/Home Management,Soft Tissue Mobilization,Taping, Therapeutic Exercises Modalities Cold Pack/Ice Massage,Hot Packs Next Visit Focus/Plan Next Note Type Treatment Note Next Visit Plan To start: Check pinch strength and wrist painfree ROM. Cont 1x/week for 2-3 more weeks for progression of wrist strengthening program without pain and progression to independent self care program. Cont gentle wrist ROM in pronation for UD. STM/TrP/MWM treatments of wrist extensor/ flexors if needed; review sona strengthening ex's and cont progression of sup/pron strengthening as tolerated. Pt choosing to ice at home. Progress to T-Band ex's when pt ready, then plan for DC.
--- NOTE | 2021-02-04 16:53 | PT.OTN ---
Current Diagnoses Pain in left wrist (02/04/21) Muscle weakness (generalized) (02/04/21) Pain in left forearm (02/04/21) Physical Therapy Treatment Note PT-OP-A Visit Information Start: 12/18/20 14:12 Freq: Status: Active Protocol: Document 02/04/21 09:55 LRN (Rec: 02/04/21 10:38 LRN [id number]) Out-Patient Physical Therapy Visit Information Visit Information Visit Type Treatment Note Visit Start Time 09:55 Visit Stop Time 10:37 Total Visit Minutes 42 Visit Number 7 Evaluation Information Evaluation Date 12/21/20 Precautions Precautions [place] [facility] [place] Rect[place] ([place]) with surgical removal f/b chemo & radiation with checks during annual physicals, Diabetes type 2, Controlled HBP. PT-OP-B Current Condition Start: 12/18/20 14:12 Freq: Status: Active Protocol: Document 12/21/20 09:53 LRN (Rec: 12/21/20 10:41 LRN [id number]) Current Condition History of Current Condition Onset Date 10/23/20 Current Complaints L forearm pain. History of Current Condition States he jammed a shovel into the ground and hit a rock, causing the shovel to stop and the hand kept going. He has been wearing a wrist splint. Wore a splint for 6 wks, then was seen for f/u and was told he needed to wear the splint outside but not in the house for 3 wks. He has been working outside daily. Pt reports pain at ulnar side of lateral wrist joint and pain is at distal ulnar and at the joint. His pain is not worse and he feels better after wearing the splint. Splint helps keep him from overusing. Prior Treatments and Tests No meds. Uses a salve of 1% hydrocortisone mostly right before bedtime for the pain. X-rays: No fractures. Treatment Goals Patient/Caregiver Goals Pt goal is for his L lateral wrist to not hurt with the sharp pain (rated 4/10) tucking in T-shirt, or up/down movement of wrist (UD/RD). States he is okay with the ache, rated 2/10. At rest no pain. Prior Functional Status Baseline Function- ADL's Independent Baseline Function- Mobility Independent Baseline Function- Recreation/[place]obbies [place]. Current Functional Impairments (Reported) Functional Limitations- ADL's L lateral wrist to not hurt with the sharp pain (rated 4/ 10) tucking in T-shirt, or up/ down movement of wrist (UD/RD) . Sharp pain with pulling up socks. Functional Limitations- Recreation/ Wears brace with outside Hobbies activities. Limited with cutting small twigs off bushes due to soreness. Personal Factors Other Personal Factors That May Effect Unknown low pulse (45-55) Therapy/Recovery condition and he is seeing a test specialist, arthritis of bilateral thumbs. PT-OP-C Subjective Start: 12/18/20 14:12 Freq: Status: Active Protocol: Document 02/04/21 09:55 LRN (Rec: 02/04/21 10:38 LRN [id number]) OP-PT Subjective Patient Comments Patient Comments Doing ex's onset. It's been really good. Doesn't bother him unless doing ex's. Daily function, no pain (pulling up socks and tucking in shirt). Has inflammation and does icing and it takes it away. Usually doesn't notice the inflammation until the next day. 100% better, ready for discharge. Patient Questionnaires Quick Dash- Upper Extremity Quick Dash UE Score 6.81 Quick Dash UE Impairment 1 to 19% Impaired (Score 1-19) PT-OP-F Manual Assessment Start: 12/18/20 14:12 Freq: Status: Active Protocol: Document 12/21/20 09:53 LRN (Rec: 12/21/20 10:41 LRN [id number]) Manual Assessments Soft Tissue Assessment Soft Tissue Mobility Assessment Slightly warm and tender at L ulna and distal end of ulna. Other Manual Assessments Other Manual Assessments L ulna tuning fork assessment - negative for pain. PT-OP-J Posture/Palpation/Skin Start: 12/18/20 14:12 Freq: Status: Active Protocol: Document 12/21/20 09:53 LRN (Rec: 12/21/20 10:41 LRN [id number]) Posture Evaluation Position Sitting Shoulder Posture Neutral Arm Posture (L) Neutral,(R) Neutral Comments Posture Comments Swelling at and above L distal end of ulna. PT-OP-K Range of Motion Start: 12/18/20 14:12 Freq: Status: Active Protocol: Document 02/04/21 09:55 LRN (Rec: 02/04/21 10:38 LRN [id number]) Wrist Goniometric Range of Motion Wrist Right Wrist ROM WFL Yes Flexion Active (degrees) 60 Extension Active (degrees) 54 Ulnar Deviation Active (degrees) 28 Radial Deviation Active (degrees) 28 Left Wrist ROM WFL No Flexion Active (degrees) 68 Extension Active (degrees) 64 Ulnar Deviation Active (degrees) 22 Radial Deviation Active (degrees) 27 PT-OP-M Strength Start: 12/18/20 14:12 Freq: Status: Active Protocol: Document 02/04/21 09:55 LRN (Rec: 02/04/21 10:38 LRN [id number]) Hand Heating And Ventilating Tender/Pinch Strength Hand Dominance Hand Dominance Right Hand Strength Right Heating And Ventilating Tender (lbs) 78 Comments 80,77, 77 Left Heating And Ventilating Tender (lbs) 72 Comments 70, 72, 75 PT-OP-Q Treatments Start: 12/18/20 14:12 Freq: Status: Active Protocol: Document 02/04/21 09:55 LRN (Rec: 02/04/21 10:38 LRN [id number]) Therapeutic Exercises Sitting Exercises Pron/Sup strengthening Sitting Exercise Name Pron/Sup strengthening Equipment Used Hammer Reps/Minutes 10x3 Elbow curls Sitting Exercise Name Forearm in Pron & Sup Side left Reps/Minutes 15x 2 each Wrist UD strengthening Sitting Exercise Name Active UD strengthening in pronation and neutral forearm Side left Reps/Minutes 8' Wrist RD strengthening Sitting Exercise Name Active RD strengthening in pronation and neutral forearm Side left Reps/Minutes 8' Wrist Flex/Ext Sitting Exercise Name In Sup/Pron: Active wrist flex/ext Side left Equipment Used Lev 1 TB Reps/Minutes 10x 3 Manual Therapy Treatment Manual Techniques MWM for UD Type L lateral wrist UD/RD with MWM of PA glide of small bones Body Location L wrist Body Position Sitting Reps/Duration 6' Comments Posterior glide of small bones with wrist UD/RD, with pain elimnated for 10 reps each with MWM and without MWM. Self-Care/Home Management Treatment Education Patient Education Joint Protection,Pain Management Other Education Discussed progression of exercise and precaution of exercise progression with education in anatomy of ligs vs tendons/muscle. Activities Self-Care/Home Management Activities Reviewed self mobilizations and issued HEP of wrist strengthening with wgt & TBand . Issued Lev 1 TBand for ex's to do without pain. PT-OP-T Assessment and Plan Start: 12/18/20 14:12 Freq: Status: Active Protocol: Document 02/04/21 09:55 LRN (Rec: 02/04/21 10:38 LRN [id number]) Physical Therapy Assessment Goals Three Impairment Decreased L wrist strength ( 47# left, 71# right) Short Term Goal (STG) Improve gas station manager strength to 57# ( 20% of right). (02/04/21: Heating And Ventilating Tender strength 78# right, 72# left) STG Duration 01/18/21 (02/04/21: MET GOAL) Half-Way Goal (LTG) 02/04/21 Improve L wrist strength with pt able to pull up socks without sharp pain. LTG Duration 02/19/21 (02/04/21: MET GOAL) Two Impairment Decreased L wrist ROM in deg's (Ext: 38 L, 54 R; UD 17 L, 28 R) Short Term Goal (STG) Improve L wrist AROM with pt will be able to move his hand in UD/RD (up/down) without sharp pain. (02/04/21: Achieved after MWM activity) STG Duration 01/18/21 (02/04/21: MET GOAL) Flower Stripper Goal (LTG) Improve L wrist mobility with the pt able to tuck in his T- shirt with mild L lateral wrist discomfort (eliminate sharp pain, rated 4/10). LTG Duration 02/19/21 (02/04/21: MET GOAL) One Impairment Pt lacks a self care HEP Half-Way Goal (LTG) Pt will be independent in a self care HEP. LTG Duration 02/19/21 (02/04/21: MET GOAL) Assessment Summary Assessment Pt met all goals. He is painfree with functional activities (dressing) and is well aware of proper wrist care. He appears to have a good understanding of his HEP and self care methods. The pt has done very well with therapy. He does appear to have postional dysfunction of the small bones of his L hand that creates pain with ulnar and radial deviation. Today he was educated in retraining of his joints for painfree active UD/RD, but if he is not able to improve strength and stability, assessment by a hand specialist would be recommended. Physical Therapy Plan Discharge Physical Therapy Discharge Reasons Goals Met Discharge Comments Thank you for your referral.
== END 2021-02-05 08:09 | disposition home or self-care (01) ==
LOC: PHYS 09:45
PROVIDERS: Family Provider Family Medicine; PCP Family Medicine; Referring Provider Family Medicine; Visit Provider Family Medicine
DX: M79.632 Pain in left forearm (principal); M62.81 Muscle weakness (generalized); M25.532 Pain in left wrist
CPT/HCPCS: 97110; 97140; 97162; 97535

== ENCOUNTER → 2021-02-13 08:57 | Outpatient (CLI) | payer OTHER, SELFPAY ==
[2021-02-13 11:43] LABS: COVID19 -Nasal RAPID Negative (Negative)
== END ==
PROVIDERS: Family Provider Family Medicine; PCP Family Medicine; Visit Provider Nurse Practitioner Family
DX: Z20.822 Contact with and (suspected) exposure to COVID-19 (principal)
CPT/HCPCS: 87635

== ENCOUNTER → 2021-02-15 15:11 | Outpatient (CLI) | payer OTHER, SELFPAY ==
--- NOTE | 2021-02-15 16:06 | PM.TREADMILL ---
Cardiac Stress Test Report Referral & Results Date Patient Seen: 02/15/21 Time Patient Seen: 16:06 Requesting provider: Alisia May Indication: bradycardia Rest ECG: Sinus bradycardia Procedure Note: Standard Clint protocol, 9:35 mins, 10.4 METS Very good exercise capacity, MARY -45% Normal hemodynamic response to exercise; appropriate heart rate response to exercise No chest pain or anginal symptoms No significant ST changes at peak exercise No ectopy Impression: Normal exercise stress test Please note: Actual ECG tracings can be found in the PACS system.
--- NOTE | 2021-02-15 19:05 | DI.NM.S_ITS ---
DATE OF SERVICE: 02/15/2021 PROCEDURE PERFORMED: Exercise treadmill stress test without imaging. ORDERING PROVIDER: Dr. Alisia May. INDICATIONS: The patient is a 75-year-old diabetic hypertensive male with chronic bradycardia. FINDINGS: 1. The patient was able to exercise for 9 minutes 35 seconds on a standard Clint protocol, suggesting excellent exercise capacity with an MARY of -45%, achieving 10.4 METs 2. He had a normal heart rate and blood pressure response with a resting heart rate of 56 BPM, increasing to a maximum of 136 BPM (93% of his predicted maximum). 3. He had no chest discomfort or anginal symptoms. 4. His resting ECG shows sinus bradycardia with normal ST segments. With exercise, there are no significant ST-segment shifts or arrhythmias although fairly prominent sinus arrhythmia is noted in the recovery phase. IMPRESSION: 1. Normal exercise treadmill study with no evidence for myocardial ischemia. 2. Excellent exercise capacity with a normal chronotropic response and no angina. Tristan Burns - PUNEET/joy/deborah doc#: [id number]/job#: [id number] dd: 02/15/2021 17:10:00 dt: 02/15/2021 18:21:00 DICTATING MD/COPIES TO: Cristobal Villasenor MD; Alisia May MD COPIES MNE: JONATHAN;
== END ==
PROVIDERS: Family Provider Family Medicine; PCP Family Medicine; Referring Provider Internal Medicine Cardiovascular Disease; Visit Provider Internal Medicine Cardiovascular Disease
DX: R00.1 Bradycardia, unspecified (principal); E11.9 Type 2 diabetes mellitus without complications; I10 Essential (primary) hypertension
CPT/HCPCS: 93017

== ENCOUNTER → 2021-03-21 07:48 | Outpatient (CLI) | payer OTHER, SELFPAY ==
[2021-03-21 09:23] LABS: Cholesterol 147 mg/dL (140-199); HDL Cholesterol 47 mg/dL (40-60); LDL Cholesterol Calculated 85 mg/dL (<100); Triglycerides 74 mg/dL (35-150)
== END ==
PROVIDERS: Family Provider Family Medicine; PCP Family Medicine; Referring Provider Internal Medicine Cardiovascular Disease; Visit Provider Internal Medicine Cardiovascular Disease
DX: I10 Essential (primary) hypertension (principal); E78.5 Hyperlipidemia, unspecified
CPT/HCPCS: 36415; 80061

== ENCOUNTER → 2021-05-07 07:53 | Outpatient (CLI) | payer OTHER, SELFPAY ==
[2021-05-07 08:56] LABS: Hemoglobin A1C% w Est Avg Glu 6.2 % (4.0-6.0)
[2021-05-07 08:57] LABS: Alanine Aminotransferase 18 IU/L (<50); Albumin 4.3 g/dL (3.5-5.0); Albumin Globulin Ratio 1.8 (1.0-2.8); Alkaline Phosphatase 45 U/L (38-126); Aspartate Aminotransferase 23 IU/L (17-59); BUN Creatinine Ratio 28.3 (6-22); Blood Urea Nitrogen 17 mg/dL (9-20); Calcium 9.3 mg/dL (8.4-10.2); Carbon Dioxide 32 mmol/L (22-32); Chloride 104 mmol/L (98-107); Estimated Glomerular Filt Rate > 60.0 mL/min (>60); Globulin 2.4 g/dL (1.7-4.1); Glucose 121 mg/dL (80-110); HEMOLYSIS < 15 (0-50); Potassium 4.2 mmol/L (3.4-5.1); Sodium 141 mmol/L (137-145); Total Protein 6.7 g/dL (6.3-8.2)
[2021-05-07 09:27] LABS: Prostate Specific Antigen 0.621 ng/mL (0.10-4.00)
== END ==
PROVIDERS: Family Provider Family Medicine; PCP Family Medicine; Referring Provider Family Medicine; Visit Provider Family Medicine
DX: I10 Essential (primary) hypertension (principal); E11.9 Type 2 diabetes mellitus without complications; R00.1 Bradycardia, unspecified; E78.5 Hyperlipidemia, unspecified
CPT/HCPCS: 36415; 80053; 83036; 84153

== ENCOUNTER → 2021-05-09 09:06 | Outpatient (CLI) | payer OTHER, SELFPAY ==
[2021-05-10 14:35] LABS: Fecal Immunochemical Test Negative (Negative)
== END ==
PROVIDERS: Family Provider Family Medicine; PCP Family Medicine; Referring Provider Family Medicine; Visit Provider Family Medicine
DX: Z00.00 Encounter for general adult medical examination without abnormal findings (principal)
CPT/HCPCS: 82274

== ENCOUNTER → 2022-04-21 07:46 | Outpatient (CLI) | payer OTHER, SELFPAY ==
[2022-04-21 08:34] LABS: Add Manual Diff / Slide Review NO; Basophils Absolute Auto 0 /uL (0-100); Basophils Percent Auto 0.5 % (0-2); Eosinophils Absolute Auto 0 /uL (0-450); Eosinophils Percent Auto 0.7 % (2-4); Hematocrit 38.8 % (41-53); Hemoglobin 13.3 g/dL (13.5-17.5); Lymphocytes Absolute Auto 1100 /uL (1100-4500); Mean Corpuscular HGB Conc 34.3 % (30-36); Mean Corpuscular Hemoglobin 32.2 PG (26-34); Mean Corpuscular Volume 93.7 fL (80-100); Monocytes Absolute Auto 600 /uL (0-900); Monocytes Percent Auto 8.2 % (3-14); Neutrophils Absolute Auto 5300 /uL (1500-7000); Neutrophils Percent Auto 74.6 % (50-75); Platelet Count 261 X10^3/uL (150-400); Red Blood Cell Count 4.14 X10^6/uL (4.5-5.9); Red Cell Distribution Width 14.1 % (11.6-14.8)
[2022-04-21 10:27] LABS: Alanine Aminotransferase 19 IU/L (<50); Albumin 3.9 g/dL (3.5-5.0); Albumin Globulin Ratio 1.6 (1.0-2.8); Alkaline Phosphatase 51 U/L (38-126); Aspartate Aminotransferase 19 IU/L (17-59); BUN Creatinine Ratio 28.4 (6-22); Bilirubin Total 1.2 mg/dL (0.2-1.3); Blood Urea Nitrogen 19 mg/dL (9-20); Calcium 9.2 mg/dL (8.4-10.2); Carbon Dioxide 29 mmol/L (22-32); Chloride 101 mmol/L (98-107); Estimated Glomerular Filt Rate > 60 mL/min (>60); Globulin 2.5 g/dL (1.7-4.1); Glucose 138 mg/dL (80-110); HEMOLYSIS < 15 (0-50); Potassium 4.6 mmol/L (3.4-5.1); Sodium 137 mmol/L (137-145); Total Protein 6.4 g/dL (6.3-8.2)
[2022-04-21 10:56] LABS: Carcinoembryonic Antigen 0.5 ng/mL (0.1-3.0); Prostate Specific Antigen Scrn 1.74 ng/mL (0.1-4.0)
== END ==
PROVIDERS: Family Provider Family Medicine; PCP Family Medicine; Referring Provider Family Medicine; Visit Provider Family Medicine
DX: Z00.00 Encounter for general adult medical examination without abnormal findings (principal); C20 Malignant neoplasm of rectum; E11.9 Type 2 diabetes mellitus without complications; Z12.5 Encounter for screening for malignant neoplasm of prostate; E78.5 Hyperlipidemia, unspecified
CPT/HCPCS: 36415; 80053; 82378; 83036; 85025; G0103

== ENCOUNTER → 2022-06-19 08:06 | Outpatient (CLI) | payer OTHER, SELFPAY ==
[2022-06-19 08:52] LABS: Add Manual Diff / Slide Review NO; Basophils Absolute Auto 0 /uL (0-100); Basophils Percent Auto 0.4 % (0-2); Eosinophils Absolute Auto 100 /uL (0-450); Eosinophils Percent Auto 1.3 % (2-4); Hematocrit 40.6 % (41-53); Hemoglobin 13.5 g/dL (13.5-17.5); Lymphocytes Absolute Auto 1100 /uL (1100-4500); Lymphocytes Percent Auto 23.9 % (25-40); Mean Corpuscular HGB Conc 33.4 % (30-36); Mean Corpuscular Hemoglobin 31.9 PG (26-34); Mean Corpuscular Volume 95.7 fL (80-100); Monocytes Absolute Auto 500 /uL (0-900); Monocytes Percent Auto 9.9 % (3-14); Neutrophils Absolute Auto 3100 /uL (1500-7000); Neutrophils Percent Auto 64.5 % (50-75); Platelet Count 242 X10^3/uL (150-400); Red Blood Cell Count 4.24 X10^6/uL (4.5-5.9); Red Cell Distribution Width 14.1 % (11.6-14.8); White Blood Cell Count 4.7 X10^3/uL (4.5-11.0)
[2022-06-19 08:55] LABS: Hemoglobin A1C% w Est Avg Glu 6.7 % (4.0-6.0)
[2022-06-19 09:06] LABS: HEMOLYSIS < 15 (0-50); Iron 128 ug/dL (49-181)
[2022-06-19 09:19] LABS: Percent Iron Saturation 36 % (20-50); Total Iron Binding Capacity 352 ug/dL (261-462); Transferrin 249 mg/dL (206-381)
[2022-06-19 09:58] LABS: Vitamin B12 328 pg/mL (239-931)
== END ==
PROVIDERS: Family Provider Family Medicine; PCP Family Medicine; Referring Provider Family Medicine; Visit Provider Family Medicine
DX: D64.9 Anemia, unspecified (principal); E11.9 Type 2 diabetes mellitus without complications
CPT/HCPCS: 36415; 82607; 83036; 83540; 83550; 85025

== ENCOUNTER → 2022-06-30 09:07 | Outpatient (CLI) | payer OTHER, SELFPAY ==
[2022-06-30 10:32] LABS: Creatinine Urine Random 58.7 mg/dL
[2022-06-30 10:35] LABS: Microalbumin Urine Random < 0.6 mg/dL (0-1.6)
== END ==
PROVIDERS: Family Provider Family Medicine; PCP Family Medicine; Referring Provider Family Medicine; Visit Provider Family Medicine
DX: E11.9 Type 2 diabetes mellitus without complications (principal)
CPT/HCPCS: 82043; 82570

== ENCOUNTER → 2022-11-13 07:58 | Outpatient (CLI) | payer OTHER, SELFPAY ==
[2022-11-13 08:42] LABS: Add Manual Diff / Slide Review NO; Basophils Absolute Auto 0 /uL (0-100); Basophils Percent Auto 0.5 % (0-2); Eosinophils Absolute Auto 100 /uL (0-450); Eosinophils Percent Auto 1.7 % (2-4); Hematocrit 43.8 % (41-53); Hemoglobin 14.8 g/dL (13.5-17.5); Lymphocytes Absolute Auto 1200 /uL (1100-4500); Lymphocytes Percent Auto 20.4 % (25-40); Mean Corpuscular HGB Conc 33.7 % (30-36); Mean Corpuscular Hemoglobin 32.1 PG (26-34); Mean Corpuscular Volume 95.3 fL (80-100); Monocytes Absolute Auto 500 /uL (0-900); Neutrophils Absolute Auto 4000 /uL (1500-7000); Neutrophils Percent Auto 68.4 % (50-75); Platelet Count 224 X10^3/uL (150-400); Red Cell Distribution Width 13.8 % (11.6-14.8); White Blood Cell Count 5.8 X10^3/uL (4.5-11.0)
[2022-11-13 08:51] LABS: Hemoglobin A1C% w Est Avg Glu 7.3 % (4.0-6.0)
[2022-11-13 09:18] LABS: Alanine Aminotransferase 30 IU/L (<50); Albumin 4.3 g/dL (3.5-5.0); Albumin Globulin Ratio 1.6 (1.0-2.8); Alkaline Phosphatase 62 U/L (38-126); Aspartate Aminotransferase 28 IU/L (17-59); BUN Creatinine Ratio 28.8 (6-22); Bilirubin Total 1.7 mg/dL (0.2-1.3); Blood Urea Nitrogen 17 mg/dL (9-20); Calcium 9.2 mg/dL (8.4-10.2); Carbon Dioxide 31 mmol/L (22-32); Chloride 101 mmol/L (98-107); Estimated Glomerular Filt Rate > 60 mL/min (>60); Globulin 2.7 g/dL (1.7-4.1); Glucose 138 mg/dL (80-110); HEMOLYSIS < 15 (0-50); Potassium 4.7 mmol/L (3.4-5.1); Sodium 137 mmol/L (137-145)
== END ==
PROVIDERS: Family Provider Family Medicine; PCP Family Medicine; Referring Provider Family Medicine; Visit Provider Family Medicine
DX: I10 Essential (primary) hypertension (principal); E11.9 Type 2 diabetes mellitus without complications; D64.9 Anemia, unspecified
CPT/HCPCS: 36415; 80053; 83036; 85025

== ENCOUNTER → 2023-02-23 10:34 | Outpatient (CLI) | payer OTHER, SELFPAY ==
--- NOTE | 2023-02-23 10:35 | DI.US.S_ITS ---
PROCEDURE: US SCROTUM INDICATIONS: RIGHT SCROTAL SWELLING TECHNIQUE: Real-time scanning was performed of the scrotum and testicles, with image documentation. Color and pulse Doppler interrogation was performed of both testicles. COMPARISON: None. FINDINGS: Right: Testicle is normal in size at 3.9 x 2.2 x 2.7 cm, and homogenous in echotexture. Epididymis is normal in overall size and morphology. Moderate to large right-sided hydrocele. Overlying scrotal skin is normal in thickness. Left: Testicle is normal in size at 3.6 x 1.7 x 2.4 cm, and homogeneous in echotexture. Epididymis is normal in overall size and morphology. Trace left-sided hydrocele. Overlying scrotal skin is normal in thickness. Doppler: Color and pulse Doppler demonstrate normal and symmetric arterial flow in both testicles. IMPRESSION: Moderate to large right-sided hydrocele and trace left-sided hydrocele. Dictated by: Woody Jones M.D. on 02/23/2023 at 11:35 Approved by: Woody Jones M.D. on 02/23/2023 at 11:36
== END ==
PROVIDERS: Family Provider Family Medicine; PCP Family Medicine; Referring Provider Nurse Practitioner Family; Visit Provider Nurse Practitioner Family
DX: N50.89 Other specified disorders of the male genital organs (principal); N43.3 Hydrocele, unspecified
CPT/HCPCS: 76870; 93975

== ENCOUNTER → 2023-03-26 08:00 | Outpatient (CLI) | payer OTHER, SELFPAY ==
[2023-03-26 09:27] LABS: Cholesterol 136 mg/dL (140-199); HDL Cholesterol 40 mg/dL (40-60); LDL Cholesterol Calculated 78 mg/dL (<100); Triglycerides 89 mg/dL (35-150)
== END ==
PROVIDERS: Family Provider Family Medicine; PCP Family Medicine; Referring Provider Internal Medicine Cardiovascular Disease; Visit Provider Internal Medicine Cardiovascular Disease
DX: E78.5 Hyperlipidemia, unspecified (principal)
CPT/HCPCS: 36415; 80061

== ENCOUNTER → 2023-04-15 07:25 | Outpatient (CLI) | payer OTHER, SELFPAY ==
[2023-04-15 08:18] LABS: Alanine Aminotransferase 27 IU/L (<50); Albumin 4.2 g/dL (3.5-5.0); Albumin Globulin Ratio 1.7 (1.0-2.8); Alkaline Phosphatase 47 U/L (38-126); Aspartate Aminotransferase 27 IU/L (17-59); BUN Creatinine Ratio 24.2 (6-22); Bilirubin Total 1.7 mg/dL (0.2-1.3); Blood Urea Nitrogen 15 mg/dL (9-20); Calcium 9.3 mg/dL (8.4-10.2); Carbon Dioxide 30 mmol/L (22-32); Chloride 100 mmol/L (98-107); Cholesterol 143 mg/dL (140-199); Estimated Glomerular Filt Rate > 60 mL/min (>60); Globulin 2.5 g/dL (1.7-4.1); Glucose 133 mg/dL (80-110); HDL Cholesterol 39 mg/dL (40-60); HEMOLYSIS < 15 (0-50); LDL Cholesterol Calculated 70 mg/dL (<100); Potassium 4.3 mmol/L (3.4-5.1); Sodium 137 mmol/L (137-145); Total Protein 6.7 g/dL (6.3-8.2); Triglycerides 172 mg/dL (35-150)
[2023-04-15 08:47] LABS: Prostate Specific Antigen Scrn 0.927 ng/mL (0.1-4.0)
[2023-04-16 03:03] LABS: x Labcorp Estim. Avg Glu (eAG) 151 mg/dL (.); x Labcorp Hemoglobin A1c 6.9 % (4.8-5.6)
== END ==
PROVIDERS: Family Provider Family Medicine; PCP Family Medicine; Referring Provider Family Medicine; Visit Provider Family Medicine
DX: Z12.5 Encounter for screening for malignant neoplasm of prostate; E11.9 Type 2 diabetes mellitus without complications; E78.5 Hyperlipidemia, unspecified; I10 Essential (primary) hypertension
CPT/HCPCS: 36415; 80053; 80061; 83036; G0103

== ENCOUNTER → 2023-10-16 07:35 | Outpatient (CLI) | payer OTHER, SELFPAY ==
[2023-10-16 08:23] LABS: Add Manual Diff / Slide Review NO; Basophils Absolute Auto 0 /uL (0-100); Basophils Percent Auto 0.4 % (0-2); Eosinophils Absolute Auto 0 /uL (0-450); Eosinophils Percent Auto 0.9 % (2-4); Hematocrit 40.3 % (41-53); Hemoglobin 13.6 g/dL (13.5-17.5); Lymphocytes Absolute Auto 1000 /uL (1100-4500); Mean Corpuscular HGB Conc 33.8 % (30-36); Mean Corpuscular Hemoglobin 32.1 PG (26-34); Monocytes Absolute Auto 400 /uL (0-900); Monocytes Percent Auto 8.2 % (3-14); Neutrophils Absolute Auto 3500 /uL (1500-7000); Neutrophils Percent Auto 70.5 % (50-75); Platelet Count 253 X10^3/uL (150-400); Red Blood Cell Count 4.25 X10^6/uL (4.5-5.9); Red Cell Distribution Width 13.7 % (11.6-14.8); White Blood Cell Count 4.9 X10^3/uL (4.5-11.0)
[2023-10-16 08:41] LABS: Hemoglobin A1C% w Est Avg Glu 6.6 % (4.0-6.0)
[2023-10-16 08:56] LABS: HEMOLYSIS < 15 (0-50); Iron 147 ug/dL (49-181)
[2023-10-16 09:04] LABS: Alanine Aminotransferase 25 IU/L (<50); Albumin 4.3 g/dL (3.5-5.0); Albumin Globulin Ratio 1.6 (1.0-2.8); Alkaline Phosphatase 51 U/L (38-126); Aspartate Aminotransferase 31 IU/L (17-59); BUN Creatinine Ratio 30.3 (6-22); Bilirubin Total 1.7 mg/dL (0.2-1.3); Blood Urea Nitrogen 20 mg/dL (9-20); Calcium 9.3 mg/dL (8.4-10.2); Carbon Dioxide 26 mmol/L (22-32); Chloride 102 mmol/L (98-107); Cholesterol 130 mg/dL (140-199); Estimated Glomerular Filt Rate > 60 mL/min (>60); Globulin 2.7 g/dL (1.7-4.1); Glucose 125 mg/dL (80-110); HDL Cholesterol 47 mg/dL (40-60); HEMOLYSIS < 15 (0-50); LDL Cholesterol Calculated 68 mg/dL (<100); Potassium 4.1 mmol/L (3.4-5.1); Sodium 137 mmol/L (137-145); Triglycerides 77 mg/dL (35-150)
[2023-10-16 09:07] LABS: Percent Iron Saturation 44 % (20-50); Total Iron Binding Capacity 334 ug/dL (261-462); Transferrin 281 mg/dL (206-381)
[2023-10-16 09:28] LABS: Carcinoembryonic Antigen 0.6 ng/mL (0.1-3.0)
== END ==
PROVIDERS: Family Provider Family Medicine; PCP Family Medicine; Referring Provider Family Medicine; Visit Provider Family Medicine
DX: D64.9 Anemia, unspecified (principal); E11.9 Type 2 diabetes mellitus without complications; C19 Malignant neoplasm of rectosigmoid junction; I10 Essential (primary) hypertension; E78.5 Hyperlipidemia, unspecified; Z79.899 Other long term (current) drug therapy
CPT/HCPCS: 36415; 80053; 80061; 82378; 83036; 83540; 83550; 85025

== ENCOUNTER → 2024-06-02 07:40 | Outpatient (CLI) | payer OTHER, SELFPAY ==
[2024-06-02 08:08] LABS: Add Manual Diff / Slide Review NO; Basophils Absolute Auto 0 /uL (0-100); Basophils Percent Auto 0.6 % (0-2); Eosinophils Absolute Auto 0 /uL (0-450); Eosinophils Percent Auto 0.9 % (2-4); Hematocrit 40.4 % (41-53); Hemoglobin 13.7 g/dL (13.5-17.5); Lymphocytes Absolute Auto 1100 /uL (1100-4500); Mean Corpuscular Hemoglobin 32.7 PG (26-34); Mean Corpuscular Volume 96.3 fL (80-100); Monocytes Absolute Auto 500 /uL (0-900); Neutrophils Absolute Auto 3700 /uL (1500-7000); Neutrophils Percent Auto 69.5 % (50-75); Platelet Count 250 X10^3/uL (150-400); Red Blood Cell Count 4.19 X10^6/uL (4.5-5.9); Red Cell Distribution Width 14.1 % (11.6-14.8); White Blood Cell Count 5.3 X10^3/uL (4.5-11.0)
[2024-06-02 10:21] LABS: Hemoglobin A1C% w Est Avg Glu 6.6 % (4.0-6.0)
[2024-06-02 13:20] LABS: Alanine Aminotransferase 22 IU/L (<50); Albumin 4.1 g/dL (3.5-5.0); Albumin Globulin Ratio 1.9 (1.0-2.8); Alkaline Phosphatase 46 U/L (38-126); Aspartate Aminotransferase 26 IU/L (17-59); BUN Creatinine Ratio 25.4 (6-22); Bilirubin Total 1.4 mg/dL (0.2-1.3); Blood Urea Nitrogen 17 mg/dL (9-20); Calcium 9.7 mg/dL (8.4-10.2); Carbon Dioxide 27 mmol/L (22-32); Chloride 104 mmol/L (98-107); Cholesterol 142 mg/dL (140-199); Estimated Glomerular Filt Rate > 60 mL/min (>60); Globulin 2.2 g/dL (1.7-4.1); Glucose 135 mg/dL (80-110); HDL Cholesterol 41 mg/dL (40-60); LDL Cholesterol Calculated 81 mg/dL (<100); Potassium 4.2 mmol/L (3.4-5.1); Sodium 137 mmol/L (137-145); Total Protein 6.3 g/dL (6.3-8.2); Triglycerides 101 mg/dL (35-150)
[2024-06-02 13:52] LABS: HEMOLYSIS < 15 (0-50); Prostate Specific Antigen Scrn 0.821 ng/mL (0.1-4.0)
== END ==
PROVIDERS: Family Provider Family Medicine; PCP Family Medicine; Referring Provider Family Medicine; Visit Provider Family Medicine
DX: I10 Essential (primary) hypertension (principal); E11.9 Type 2 diabetes mellitus without complications; Z12.5 Encounter for screening for malignant neoplasm of prostate; E78.5 Hyperlipidemia, unspecified
CPT/HCPCS: 36415; 80053; 80061; 83036; 85025; G0103

== ENCOUNTER → 2025-05-26 07:43 | Outpatient (CLI) | payer OTHER, SELFPAY ==
[2025-05-26 08:45] LABS: Alanine Aminotransferase 22 IU/L (<50); Albumin 4.4 g/dL (3.5-5.0); Albumin Globulin Ratio 1.6 (1.0-2.8); Alkaline Phosphatase 51 U/L (38-126); Blood Urea Nitrogen 20 mg/dL (9-20); Calcium 9.6 mg/dL (8.4-10.2); Carbon Dioxide 28 mmol/L (22-32); Chloride 100 mmol/L (98-107); Cholesterol 136 mg/dL (140-199); Estimated Glomerular Filt Rate > 60 mL/min (>60); Globulin 2.7 g/dL (1.7-4.1); Glucose 132 mg/dL (70-99); HDL Cholesterol 41 mg/dL (40-60); HEMOLYSIS < 15 (0-50); Sodium 135 mmol/L (137-145); Total Protein 7.1 g/dL (6.3-8.2); Triglycerides 119 mg/dL (35-150)
[2025-05-26 08:46] LABS: Potassium 4.1 mmol/L (3.4-5.1)
== END ==
LOC: LAB 07:45
PROVIDERS: Internal Medicine Cardiovascular Disease; PCP Family Medicine; Referring Provider Nurse Practitioner; Visit Provider Nurse Practitioner
DX: I10 Essential (primary) hypertension (principal)
CPT/HCPCS: 36415; 80053; 80061